=== PATIENT | male | born 1945 | race Caucasian/White ===

== ENCOUNTER 2018-05-05 16:07 | Inpatient (IN) | payer MEDICARE, OTHER ==
[~2018-05-05] VITALS: Ht 177.8 cm; Wt 73.5 kg
[2018-05-05 16:10] VITALS: BP 138/72
[2018-05-05] MEDS ORDERED: METFORMIN HCL500 M1 ORAL (16:33)
--- NOTE | 2018-05-05 16:44 | Emergency Room Report ---
History of Present Illness General Chief Complaint: Multiple Trauma/Fall Source: Patient Present Illness HPI Mr. Gil is a 72-year-old male with history of erk-ufwjtrp-tcqbyevky diabetes who presents with frequent fall. He fell twice today. Today fell onto face with bruising and bleeding to nose and right eye. Recently discharged from [place] yesterday morning after treatment for respiratory infection. Currently living in his van with his son. He decided to vacate his apartment. Has had balance issues in the past. No history of CVA. Allergies: Coded Allergies: No Known Allergies (Unverified , 05/05/18) Patient History Past Medical History: DM Past Surgical History: other - surgery on elbow Pertinent Family History: other - not significant Social History: Denies: smoking, alcohol use Reviewed Nursing Documentation: PMH: Agreed; PSxH: Agreed Nursing Documentation-PMH Past Medical History: No Stated History Review of Systems Constitutional: Denies: fever, malaise Respiratory: Denies: cough All Other Systems: negative except mentioned in HPI Physical Exam Vital Signs Date Time Temp Pulse Resp B/P (MAP) Pulse Ox O2 Delivery O2 Flow Rate FiO2 05/05/18 15:55 98.1 88 18 138/72 99 Room Air Sp02 EP Interpretation: reviewed, normal General Appearance: no apparent distress, alert, GCS 15, non-toxic Head: normocephalic, other - nose deformed to right, periorbital ecchymosis, dried blood on nose, 1 cm superficial laceration at bridge of nose Eyes: bilateral eye normal inspection, bilateral eye PERRL ENT: hearing grossly normal, normal pharynx, no angioedema, normal voice Neck: full range of motion, supple/symm/no masses Respiratory: chest non-tender, lungs clear, normal breath sounds, speaking full sentences Cardiovascular #1: regular rate, rhythm Cardiovascular #2: 2+ dorsalis pedis (R), 2+ dorsalis pedis (L) Gastrointestinal: normal bowel sounds, non tender, soft, non-distended, no guarding, no rebound Rectal: deferred Genitourinary: normal inspection, no CVA tenderness Musculoskeletal: normal range of motion Neurologic: alert, oriented x3, responsive, motor strength/tone normal, sensory intact, speech normal, abnormal gait Psychiatric: judgement/insight normal, memory normal, mood/affect normal, no suicidal/homicidal ideation Skin: normal color, no rash, warm/dry, well hydrated Lymphatic: no adenopathy Procedures Laceration/Wound Repair Laceration/Wound Repair : Consent: Verbal Wound Location: face Wound's Depth, Shape: superficial Wound Explored: clean Irrigated w/ Saline (ccs): 200 Betadine Prep?: No Wound Debrided: minimal Wound Repaired With: Dermabond Layer Closure?: No Sterile Dressing Applied?: No Patient Tolerated: Well Complications: None Progress 3 layers of dermabond applied to laceration Medical Decision Making Diagnostic Impression: Primary Impression: Gait instability Additional Impressions: Recurrent falls Nasal fracture Facial laceration Facial contusion ER Course Mr. Kuhn has had 2 falls since discharge from [place] on yesterday. Has difficulty with ambulation. Unclear if acute CVA or debilitation due to age. Will need neurological evaluation. Has facial contusion with old or subacute facial fractures. CT head without ICH Poor social situation. Patient is living in his van. He has not been able to reach his son via telephone Admitted to service of Dr. Olivas Labs Test 05/05/18 17:20 White Blood Count 13.6 K/UL (4.8-10.8) Red Blood Count 4.61 M/UL (4.70-6.10) Hemoglobin 14.4 G/DL (14.2-18.0) Hematocrit 41.1 % (42.0-52.0) Mean Corpuscular Volume 89 FL (80-99) Mean Corpuscular Hemoglobin 31.3 PG (27.0-31.0) Mean Corpuscular Hemoglobin Concent 35.0 G/DL (32.0-36.0) Red Cell Distribution Width 11.5 % (11.6-14.8) Platelet Count 202 K/UL (150-450) Mean Platelet Volume 6.2 FL (6.5-10.1) Neutrophils (%) (Auto) 79.9 % (45.0-75.0) Lymphocytes (%) (Auto) 8.5 % (20.0-45.0) Monocytes (%) (Auto) 10.2 % (1.0-10.0) Eosinophils (%) (Auto) 0.7 % (0.0-3.0) Basophils (%) (Auto) 0.6 % (0.0-2.0) Prothrombin Time 10.2 SEC (9.30-11.50) Prothromb Time International Ratio 1.0 (0.9-1.1) Activated Partial Thromboplast Time 28 SEC (23-33) Sodium Level 140 MMOL/L (136-145) Potassium Level 4.2 MMOL/L (3.5-5.1) Chloride Level 103 MMOL/L (98-107) Carbon Dioxide Level 27 MMOL/L (21-32) Anion Gap 10 mmol/L (5-15) Blood Urea Nitrogen 18 mg/dL (7-18) Creatinine 1.3 MG/DL (0.55-1.30) Estimat Glomerular Filtration Rate mL/min (>60) Glucose Level 121 MG/DL (74-106) Calcium Level 10.0 MG/DL (8.5-10.1) Total Bilirubin 0.5 MG/DL (0.2-1.0) Aspartate Amino Transf (AST/SGOT) 25 U/L (15-37) Alanine Aminotransferase (ALT/SGPT) 29 U/L (12-78) Alkaline Phosphatase 85 U/L (46-116) Troponin I 0.210 ng/mL (0.000-0.056) Total Protein 8.6 G/DL (6.4-8.2) Albumin 3.6 G/DL (3.4-5.0) Globulin 5.0 g/dL Albumin/Globulin Ratio 0.7 (1.0-2.7) EKG Diagnostic Results EKG Time: 16:49 Rate: normal Rhythm: NSR ST Segments: no acute changes Other Impression rate 95 bpm nl axis prolonged QT +LVH no ST elevation nonspecific T wave patter Last Vital Signs Date Time Temp Pulse Resp B/P (MAP) Pulse Ox O2 Delivery O2 Flow Rate FiO2 05/05/18 16:22 88 18 Room Air 05/05/18 16:10 98.1 138/72 99 Ayla Perkins MD May 05, 2018 16:44
[2018-05-05] MEDS ORDERED: Tetanus/Diptheria/Pertussis Vaccine 0.5ml Syr IM ONE (16:45)
[2018-05-05 17:53] LABS: BASOPHILS % (AUTO) 0.6 % (0.0-2.0); EOSINOPHILS % (AUTO) 0.7 % (0.0-3.0); HEMATOCRIT 41.1 % (42.0-52.0); HEMOGLOBIN 14.4 G/DL (14.2-18.0); LYMPHOCYTES % (AUTO) 8.5 % (20.0-45.0); MEAN CORPUSCULAR VOLUME 89 FL (80-99); MONOCYTES % (AUTO) 10.2 % (1.0-10.0); NEUTROPHILS % (AUTO) 79.9 % (45.0-75.0); PLATELET COUNT 202 K/UL (150-450); RED BLOOD COUNT 4.61 M/UL (4.70-6.10); RED CELL DISTRIBUTION WIDTH 11.5 % (11.6-14.8); WHITE BLOOD COUNT 13.6 K/UL (4.8-10.8)
[2018-05-05 17:59] LABS: ANION GAP 10 mmol/L (5-15); BLOOD UREA NITROGEN 18 mg/dL (7-18); CARBON DIOXIDE 27 MMOL/L (21-32); CHLORIDE 103 MMOL/L (98-107); CREATININE 1.3 MG/DL (0.55-1.30); POTASSIUM 4.2 MMOL/L (3.5-5.1); SODIUM 140 MMOL/L (136-145)
[2018-05-05 18:15] LABS: ALANINE AMINOTRANSFERASE 29 U/L (12-78); ALBUMIN 3.6 G/DL (3.4-5.0); ALBUMIN/GLOBULIN RATIO 0.7 (1.0-2.7); ALKALINE PHOSPHATASE 85 U/L (46-116); ASPARTATE AMINO TRANSFERASE 25 U/L (15-37); BILIRUBIN,TOTAL 0.5 MG/DL (0.2-1.0)
[2018-05-05 18:50] VITALS: BP 140/66
[2018-05-05] MEDS ORDERED: ASPIRIN81 MG ORAL (19:42)
[2018-05-05 20:05] VITALS: BP 148/68
[2018-05-05] MEDS: Heparin 5000 units/ml inj SUBQ SCH (23:28)
[2018-05-06] VITALS: BP 134/85
[2018-05-06 04:00] VITALS: BP 149/78
[2018-05-06] MEDS: NovoLOG Insulin Flexpen SUBQ SCH ×4 (05:58→20:49)
[2018-05-06 07:51] LABS: BASOPHILS % (AUTO) 0.7 % (0.0-2.0); EOSINOPHILS % (AUTO) 2.6 % (0.0-3.0); HEMATOCRIT 40.8 % (42.0-52.0); HEMOGLOBIN 13.9 G/DL (14.2-18.0); LYMPHOCYTES % (AUTO) 18.3 % (20.0-45.0); MEAN CORPUSCULAR VOLUME 88 FL (80-99); MONOCYTES % (AUTO) 12.4 % (1.0-10.0); PLATELET COUNT 219 K/UL (150-450); RED BLOOD COUNT 4.65 M/UL (4.70-6.10); RED CELL DISTRIBUTION WIDTH 11.7 % (11.6-14.8); WHITE BLOOD COUNT 8.4 K/UL (4.8-10.8)
[2018-05-06 08:00] VITALS: BP 129/73
[2018-05-06] MEDS: Aspirin Baby 81mg ORAL SCH (08:07)
[2018-05-06] MEDS: metFORMIN 500mg tab ORAL SCH ×2 (08:07→18:00)
[2018-05-06] MEDS: Heparin 5000 units/ml inj SUBQ SCH ×2 (08:08→20:50)
[2018-05-06 08:24] LABS: ALANINE AMINOTRANSFERASE 31 U/L (12-78); ALBUMIN 3.5 G/DL (3.4-5.0); ALBUMIN/GLOBULIN RATIO 0.8 (1.0-2.7); ALKALINE PHOSPHATASE 88 U/L (46-116); ANION GAP 8 mmol/L (5-15); ASPARTATE AMINO TRANSFERASE 25 U/L (15-37); BILIRUBIN,TOTAL 0.5 MG/DL (0.2-1.0); BLOOD UREA NITROGEN 19 mg/dL (7-18); CALCIUM 9.8 MG/DL (8.5-10.1); CARBON DIOXIDE 31 MMOL/L (21-32); CHLORIDE 103 MMOL/L (98-107); CREATININE 1.2 MG/DL (0.55-1.30); PHOSPHORUS 3.8 MG/DL (2.5-4.9); POTASSIUM 3.9 MMOL/L (3.5-5.1); SODIUM 142 MMOL/L (136-145)
[2018-05-06] MEDS ORDERED: UROXATRAL10 M2 PO (10:50)
[2018-05-06] MEDS ORDERED: CICLOPIROX6.6 ML TP (10:57)
[2018-05-06] MEDS ORDERED: ASPIRIN81 MG ORAL (10:57)
[2018-05-06] MEDS ORDERED: MELATONIN 3 MG1 EAC1 PO (10:57)
[2018-05-06] MEDS ORDERED: TERBINAFINE15 GM TP (10:57)
[2018-05-06] MEDS ORDERED: METFORMIN HYD1000 GM MC (10:57)
[2018-05-06] MEDS ORDERED: NS 275ml ONE (11:20)
[2018-05-06 12:00] VITALS: BP 116/68
--- NOTE | 2018-05-06 12:25 | Consultation ---
History of Present Illness General Date patient seen: May 06, 2018 Chief Complaint: Multiple Trauma/Fall Present Illness HPI 72-year-old male with history of uyy-mmpwplt-yurtwhedb diabetes who presents with frequent fall. Yesterday hefell onto face with bruising and bleeding to nose and right eye. He is admitted to telemetry for neuro evaluation. Allergies: Coded Allergies: No Known Allergies (Unverified , 05/05/18) Medication History Scheduled Aspirin* (Aspirin*), 81 MG ORAL DAILY, (Reported) Aspirin* (Aspirin*), 81 MG ORAL DAILY, (Reported) Metformin Hcl* (Metformin Hcl*), 1,000 MG ORAL TWICE A DAY, (Reported) Scheduled PRN Melatonin/Pyridoxine HCl (B6) (Melatonin 3 mg Tablet), 1 EACH PO for For High Blood Pressure, (Reported) Miscellaneous Medications Alfuzosin Hcl (Uroxatral), 10 MG PO, (Reported) Ciclopirox (Ciclopirox), 6.6 ML TP, (Reported) Metformin Hcl (Metformin Hydrochloride), 1,000 GM MC, (Reported) Terbinafine Hcl (Terbinafine), 15 GM TP, (Reported) Patient History Healthcare decision maker Resuscitation status Full Code Advanced Directive on File No Past Medical/Surgical History Past Medical/Surgical History: (1) Diabetes mellitus Review of Systems All Other Systems: negative except mentioned in HPI Physical Exam General Appearance: WD/WN Lines, tubes and drains: peripheral HEENT: normocephalic, atraumatic Neck: non-tender, normal alignment Respiratory/Chest: chest wall non-tender, lungs clear Cardiovascular/Chest: normal peripheral pulses, normal rate Abdomen: normal bowel sounds Genitourinary/Rectal: normal genital exam Extremities: normal range of motion Last 24 Hour Vital Signs Date Time Temp Pulse Resp B/P (MAP) Pulse Ox O2 Delivery O2 Flow Rate FiO2 05/06/18 08:38 Room Air 05/06/18 08:00 98.6 79 20 129/73 (91) 98 05/06/18 08:00 83 05/06/18 04:00 76 05/06/18 04:00 98.0 75 20 149/78 (101) 100 05/06/18 00:51 Room Air 05/06/18 00:00 82 05/06/18 00:00 98.1 98 21 134/85 (101) 100 05/05/18 21:30 98.4 94 20 148/68 99 Room Air 05/05/18 20:05 98.4 94 20 148/68 99 Room Air 05/05/18 18:50 98.1 90 18 140/66 99 Room Air 05/05/18 16:22 88 18 Room Air 05/05/18 16:10 98.1 18 138/72 99 Room Air 05/05/18 15:55 98.1 88 18 138/72 99 Room Air Laboratory Tests Test 05/05/18 17:20 05/06/18 06:40 White Blood Count 13.6 K/UL (4.8-10.8) H 8.4 K/UL (4.8-10.8) Red Blood Count 4.61 M/UL (4.70-6.10) L 4.65 M/UL (4.70-6.10) L Hemoglobin 14.4 G/DL (14.2-18.0) 13.9 G/DL (14.2-18.0) L Hematocrit 41.1 % (42.0-52.0) L 40.8 % (42.0-52.0) L Mean Corpuscular Volume 89 FL (80-99) 88 FL (80-99) Mean Corpuscular Hemoglobin 31.3 PG (27.0-31.0) H 30.0 PG (27.0-31.0) Mean Corpuscular Hemoglobin Concent 35.0 G/DL (32.0-36.0) 34.1 G/DL (32.0-36.0) Red Cell Distribution Width 11.5 % (11.6-14.8) L 11.7 % (11.6-14.8) Platelet Count 202 K/UL (150-450) 219 K/UL (150-450) Mean Platelet Volume 6.2 FL (6.5-10.1) L 6.1 FL (6.5-10.1) L Neutrophils (%) (Auto) 79.9 % (45.0-75.0) H 66.0 % (45.0-75.0) Lymphocytes (%) (Auto) 8.5 % (20.0-45.0) L 18.3 % (20.0-45.0) L Monocytes (%) (Auto) 10.2 % (1.0-10.0) H 12.4 % (1.0-10.0) H Eosinophils (%) (Auto) 0.7 % (0.0-3.0) 2.6 % (0.0-3.0) Basophils (%) (Auto) 0.6 % (0.0-2.0) 0.7 % (0.0-2.0) Prothrombin Time 10.2 SEC (9.30-11.50) Prothromb Time International Ratio 1.0 (0.9-1.1) Activated Partial Thromboplast Time 28 SEC (23-33) Sodium Level 140 MMOL/L (136-145) 142 MMOL/L (136-145) Potassium Level 4.2 MMOL/L (3.5-5.1) 3.9 MMOL/L (3.5-5.1) Chloride Level 103 MMOL/L (98-107) 103 MMOL/L (98-107) Carbon Dioxide Level 27 MMOL/L (21-32) 31 MMOL/L (21-32) Anion Gap 10 mmol/L (5-15) 8 mmol/L (5-15) Blood Urea Nitrogen 18 mg/dL (7-18) 19 mg/dL (7-18) H Creatinine 1.3 MG/DL (0.55-1.30) 1.2 MG/DL (0.55-1.30) Estimat Glomerular Filtration Rate mL/min (>60) mL/min (>60) Glucose Level 121 MG/DL (74-106) H 101 MG/DL (74-106) Calcium Level 10.0 MG/DL (8.5-10.1) 9.8 MG/DL (8.5-10.1) Total Bilirubin 0.5 MG/DL (0.2-1.0) 0.5 MG/DL (0.2-1.0) Aspartate Amino Transf (AST/SGOT) 25 U/L (15-37) 25 U/L (15-37) Alanine Aminotransferase (ALT/SGPT) 29 U/L (12-78) 31 U/L (12-78) Alkaline Phosphatase 85 U/L (46-116) 88 U/L (46-116) Troponin I 0.210 ng/mL (0.000-0.056) 0.160 ng/mL (0.000-0.056) Total Protein 8.6 G/DL (6.4-8.2) H 8.0 G/DL (6.4-8.2) Albumin 3.6 G/DL (3.4-5.0) 3.5 G/DL (3.4-5.0) Globulin 5.0 g/dL 4.5 g/dL Albumin/Globulin Ratio 0.7 (1.0-2.7) L 0.8 (1.0-2.7) L Hemoglobin A1c 5.9 % (4.3-6.0) Phosphorus Level 3.8 MG/DL (2.5-4.9) Magnesium Level 1.9 MG/DL (1.8-2.4) Height (Feet): 5 Height (Inches): 10.00 Weight (Pounds): 162 Medications Current Medications Medications (Trade) Dose Ordered Sig/Phill Route PRN Reason Start Time Stop Time Status Last Admin Dose Admin Acetaminophen (Tylenol) 650 mg Q6H PRN ORAL Mild Pain/Temp > 100.5 05/05/18 22:30 06/04/18 22:29 Aspirin (ASA) 81 mg DAILY ORAL 05/06/18 09:00 06/05/18 08:59 05/06/18 08:07 Dextrose (Dextrose 50%) 25 ml Q30M PRN IV Hypoglycemia 05/05/18 22:30 06/04/18 22:29 Dextrose (Dextrose 50%) 50 ml Q30M PRN IV Hypoglycemia 05/05/18 22:30 06/04/18 22:29 Heparin Sodium (Porcine) (Heparin 5000 units/ml) 5,000 units EVERY 12 HOURS SUBQ 05/05/18 22:45 06/04/18 22:44 05/06/18 08:08 Insulin Aspart (NovoLOG) BEFORE MEALS AND HS SUBQ 05/06/18 06:30 06/05/18 06:29 Metformin HCl (Glucophage) 1,000 mg TWICE A DAY ORAL 05/06/18 09:00 06/05/18 08:59 05/06/18 08:07 Assessment/Plan Problem List: (1) positivie troponin (2) Acute encephalopathy ICD Codes: G93.40 - Encephalopathy, unspecified SNOMED: 58729461, 194043368 (3) Gait instability ICD Codes: R26.81 - Unsteadiness on feet SNOMED: 43794587, 770681534 (4) Recurrent falls ICD Codes: R29.6 - Repeated falls SNOMED: 653676822, 185776170 (5) Diabetes mellitus ICD Codes: E11.9 - Type 2 diabetes mellitus without complications SNOMED: 64934186 Assessment/Plan telemetry monitoring 2Decho sliding scale doppler of carotid artery. Neuro evaluation when available. cardio evaluation. Mary Costello MD May 06, 2018 12:25
--- NOTE | 2018-05-06 12:59 | Cardiac Electrophysiology PN ---
Subjective Subjective [id number] Objective Last 24 Hour Vital Signs Date Time Temp Pulse Resp B/P (MAP) Pulse Ox O2 Delivery O2 Flow Rate FiO2 05/06/18 12:00 98.4 70 20 116/68 (84) 99 05/06/18 08:38 Room Air 05/06/18 08:00 98.6 79 20 129/73 (91) 98 05/06/18 08:00 83 05/06/18 04:00 76 05/06/18 04:00 98.0 75 20 149/78 (101) 100 05/06/18 00:51 Room Air 05/06/18 00:00 82 05/06/18 00:00 98.1 98 21 134/85 (101) 100 05/05/18 21:30 98.4 94 20 148/68 99 Room Air 05/05/18 20:05 98.4 94 20 148/68 99 Room Air 05/05/18 18:50 98.1 90 18 140/66 99 Room Air 05/05/18 16:22 88 18 Room Air 05/05/18 16:10 98.1 18 138/72 99 Room Air 05/05/18 15:55 98.1 88 18 138/72 99 Room Air Laboratory Tests Test 05/05/18 17:20 05/06/18 06:40 White Blood Count 13.6 K/UL (4.8-10.8) H 8.4 K/UL (4.8-10.8) Red Blood Count 4.61 M/UL (4.70-6.10) L 4.65 M/UL (4.70-6.10) L Hemoglobin 14.4 G/DL (14.2-18.0) 13.9 G/DL (14.2-18.0) L Hematocrit 41.1 % (42.0-52.0) L 40.8 % (42.0-52.0) L Mean Corpuscular Volume 89 FL (80-99) 88 FL (80-99) Mean Corpuscular Hemoglobin 31.3 PG (27.0-31.0) H 30.0 PG (27.0-31.0) Mean Corpuscular Hemoglobin Concent 35.0 G/DL (32.0-36.0) 34.1 G/DL (32.0-36.0) Red Cell Distribution Width 11.5 % (11.6-14.8) L 11.7 % (11.6-14.8) Platelet Count 202 K/UL (150-450) 219 K/UL (150-450) Mean Platelet Volume 6.2 FL (6.5-10.1) L 6.1 FL (6.5-10.1) L Neutrophils (%) (Auto) 79.9 % (45.0-75.0) H 66.0 % (45.0-75.0) Lymphocytes (%) (Auto) 8.5 % (20.0-45.0) L 18.3 % (20.0-45.0) L Monocytes (%) (Auto) 10.2 % (1.0-10.0) H 12.4 % (1.0-10.0) H Eosinophils (%) (Auto) 0.7 % (0.0-3.0) 2.6 % (0.0-3.0) Basophils (%) (Auto) 0.6 % (0.0-2.0) 0.7 % (0.0-2.0) Prothrombin Time 10.2 SEC (9.30-11.50) Prothromb Time International Ratio 1.0 (0.9-1.1) Activated Partial Thromboplast Time 28 SEC (23-33) Sodium Level 140 MMOL/L (136-145) 142 MMOL/L (136-145) Potassium Level 4.2 MMOL/L (3.5-5.1) 3.9 MMOL/L (3.5-5.1) Chloride Level 103 MMOL/L (98-107) 103 MMOL/L (98-107) Carbon Dioxide Level 27 MMOL/L (21-32) 31 MMOL/L (21-32) Anion Gap 10 mmol/L (5-15) 8 mmol/L (5-15) Blood Urea Nitrogen 18 mg/dL (7-18) 19 mg/dL (7-18) H Creatinine 1.3 MG/DL (0.55-1.30) 1.2 MG/DL (0.55-1.30) Estimat Glomerular Filtration Rate mL/min (>60) mL/min (>60) Glucose Level 121 MG/DL (74-106) H 101 MG/DL (74-106) Calcium Level 10.0 MG/DL (8.5-10.1) 9.8 MG/DL (8.5-10.1) Total Bilirubin 0.5 MG/DL (0.2-1.0) 0.5 MG/DL (0.2-1.0) Aspartate Amino Transf (AST/SGOT) 25 U/L (15-37) 25 U/L (15-37) Alanine Aminotransferase (ALT/SGPT) 29 U/L (12-78) 31 U/L (12-78) Alkaline Phosphatase 85 U/L (46-116) 88 U/L (46-116) Troponin I 0.210 ng/mL (0.000-0.056) 0.160 ng/mL (0.000-0.056) Total Protein 8.6 G/DL (6.4-8.2) H 8.0 G/DL (6.4-8.2) Albumin 3.6 G/DL (3.4-5.0) 3.5 G/DL (3.4-5.0) Globulin 5.0 g/dL 4.5 g/dL Albumin/Globulin Ratio 0.7 (1.0-2.7) L 0.8 (1.0-2.7) L Hemoglobin A1c 5.9 % (4.3-6.0) Phosphorus Level 3.8 MG/DL (2.5-4.9) Magnesium Level 1.9 MG/DL (1.8-2.4) Lauri Faye MD May 06, 2018 12:59
--- NOTE | 2018-05-06 13:07 | Diagnostic Imaging Report ---
Indication: Trauma. Facial pain Technique: Continuous helical transaxial imaging of the maxillofacial structures obtained without intravenous contrast administration. Coronal 2-D reformats were also obtained. Study obtained in a Siemens sensation [address] Automatic Exposure Control was utilized. Total Dose length Product (DLP): 1988.[address] Dose Index Volume (CTDIvol): 70.38,28.19 mGy Comparison: None Findings: There is an acute nasal fracture involving the apex of the nasal bone and the right side. Soft tissue swelling is present. There is right periorbital soft tissue swelling. There is a mild nondisplaced fracture of the right orbital floor, which is subtle and may be old. There is subtle mild nondisplaced fracture of the anterior wall of the right maxillary sinus. An age indeterminate fracture extending to the posterior wall of the maxillary sinus. These fractures may be old. The pterygoid plates are intact. The nasal septum is deviated to the left. The temporomandibular joints appear normal. The mastoids are clear bilaterally. The mandible is on remarkable. Degenerative changes of the cervical spine are noted. The orbits themselves appear normal. The extraocular muscles optic nerve and globe appear normal. There is no retrobulbar hemorrhage or proptosis. IMPRESSION: Acute nondisplaced right nasal fracture. Subtle nondisplaced fracture of the right inferior orbital wall, acuity indeterminate. Right periorbital soft tissue contusion. Subtle nondisplaced fractures of the anterior wall of the right maxillary sinus as well as the posterior wall the right maxillary sinus. These are probably old. [facility] has communicated the preliminary results to the Emergency Department. Their findings are largely concordant with this report. The CT scanner at [facility] is accredited by the [employer] and the scans are performed using dose optimization techniques as appropriate to a performed exam including Automatic Exposure control.
--- NOTE | 2018-05-06 13:08 | Diagnostic Imaging Report ---
Indication: Head trauma. Headache Technique: Contiguous 5 mm thick transaxial imaging of the head obtained in a Siemens Sensation [address] scanner. Soft tissue and bone windows generated. Automatic Exposure Control was utilized. Total Dose length Product (DLP): 1988.[address] Dose Index Volume (CTDIvol): 70.38,28.19 mGy Comparison: none Findings: There is mild prominence of the ventricles, basal cisterns, and cerebral sulci consistent with atrophy. Mild, nonspecific, white matter hypoattenuation is noted throughout the brain consistent with chronic small vessel disease. There is no midline shift, edema, acute hemorrhage, mass effect, or abnormal extra-axial fluid collections. Right periorbital soft tissue swelling noted. Impression: No acute intracranial bleed, mass effect or edema. Mild atrophy of the brain. Nonspecific white matter hypoattenuation probably due to chronic small vessel disease. Right periorbital soft tissue contusion The CT scanner at [facility] is accredited by the [employer] and the scans are performed using dose optimization techniques as appropriate to a performed exam including Automatic Exposure control.
--- NOTE | 2018-05-06 13:52 | Diagnostic Imaging Report ---
Indication: Dyspnea Comparison: None A single view chest radiograph was obtained. Findings: Cardiomediastinal appearance is within normal limits for age. The lungs are clear. Pulmonary vascularity is appropriate. The diaphragmatic contour is smooth and costophrenic angles are sharp. No pleural effusions are identified. The bones are osteopenic. Impression: No acute findings
[2018-05-06] MEDS: CICLOPIROX 8% TOPIC SCH (14:37)
--- NOTE | 2018-05-06 15:04 | Consultation ---
Consult Note Consult Note NEUROLOGY CONSULTATION: Full note dictated #[id number] 72 y/o, RH, CM with PH of DM, unsteadiness on his feet which he attributes to left knee problems, and a recent respiratory infection. He was functioning relatively well until 05/05/18 when he tripped and fell down on the sidewalk twice. He hit his right face and nose and injured it. ON EXAM: Right periorbital ecchymosis. Right subconjunctival hemorrhage. Mild problems with memory. Decreased position sense in toes Globally absent DTRs [place] back Wide based stance & gait. IMPRESSION: 1. 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 2. Closed head injury with right facial aberrations, right periorbital ecchymosis, and right sub-conjunctival hemorrhage. REC: 1. Work-up neuropathy. 2. Mobilize with PT 3. Observe Maury Sanchez M.D., M.S.P.MAURY ARELLANO May 06, 2018 15:04
--- NOTE | 2018-05-06 15:16 | History & Physical ---
History and Physical History & Physicial Rik Olivas MD May 06, 2018 15:16
[2018-05-06 16:00] VITALS: BP 109/67
[2018-05-06 20:00] VITALS: BP 128/81
[2018-05-06] MEDS: Metoprolol 25mg tab ORAL SCH (20:48)
--- NOTE | 2018-05-06 21:02 | Consultation ---
DATE OF CONSULTATION: 05/06/2018 CARDIOLOGY CONSULTATION CONSULTING PHYSICIAN: Lauri Faye M.D. REFERRING PHYSICIAN: Rik Olivas M.D. REASON FOR CONSULTATION: Rule out cardiac syncope. HISTORY OF PRESENT ILLNESS: The patient is a 72-year-old gentleman with history of diabetes, who presented to the emergency room with recurrent falls. The patient fell onto his face which resulted in bruising and bleeding in the nose as well as right eye. The patient denies loss of consciousness. States it was a trip and fall. The patient denies any prior myocardial infarction or known coronary artery disease. Cardiology consultation was obtained for further evaluation and management. His EKG showed left ventricle hypertrophy with repolarization abnormality as well as prolonged QT. REVIEW OF SYSTEMS: Negative other than what was mentioned in the history of present illness. PAST MEDICAL HISTORY: Includes diabetes. FAMILY HISTORY: Noncontributory. MEDICATIONS: Include aspirin and metformin. FAMILY HISTORY: Noncontributory. SOCIAL HISTORY: He does not smoke or drink alcohol. PHYSICAL EXAMINATION: VITAL SIGNS: Show blood pressure of 116/68, pulse 70, respirations 18, temperature 98.4. HEAD AND NECK: Shows no JVD. His right eye is ecchymotic. There is a scar on the bridge of the nose. LUNGS: Clear. CARDIOVASCULAR: Shows regular S1 and S2 with no gallop or murmur. ABDOMEN: Soft. EXTREMITIES: No pitting edema. LABORATORY AND DIAGNOSTIC STUDIES: His EKG shows sinus rhythm with LVH, repolarization, and prolonged QT. Laboratories show white count of 8.4, hematocrit 13.8, hematocrit of 40, and platelet count 219,000. Sodium 142, potassium 3.9, BUN of 19, creatinine 1.2. Troponin is 0.21 and 0.16. ASSESSMENT AND PLAN: 1. Xuc-BJ-lgvjwphvq myocardial infarction with elevated troponins and abnormal EKG with T-wave inversion in I, aVL, and V3 to V6. The patient however denies any chest pain. Repeat EKG and get an echocardiogram to evaluate for ejection fraction and wall motion abnormality. However, the patient does not have renal failure to have elevated troponins. 2. Status post multiple falls. The patient denies syncope. We will watch the patient on telemetry, watch orthostatic vital signs, and get echocardiogram and carotid duplex. 3. Diabetes, on metformin. Thank you very much, Dr. Olivas, for allowing me to participate in the care of this patient. Please do not hesitate to contact me for any questions regarding my evaluation. Lauri Faye M.D. DR: Benito JOB#: [id number] CC:
--- NOTE | 2018-05-06 21:02 | Consultation ---
DATE OF CONSULTATION: 05/06/2018 NEUROLOGY CONSULTATION REQUESTING PHYSICIAN: Rik Olivas M.D. HISTORY: Mr. Segundo Kuhn is a 72-year-old, right-handed, gentleman, who does have a past history of what he calls borderline diabetes mellitus, unsteadiness on his feet which he attributes to left knee problems and a recent respiratory infection. He was functioning well until the morning of 05/05/2018 when he tripped and fell down on the sidewalk. He got up and started to walk again and fell down again. As a result of that, he sustained right facial trauma and was brought into the [facility] Emergency Room. He has since been admitted to the hospital. He denies any loss of consciousness. He also denies any weakness on one side or the other, numbness on one side or the other, problems with speech, problems with language, problems with vision, or problems with his memory. PAST MEDICAL HISTORY: Significant for borderline diabetes mellitus, unsteadiness on his feet, and a recent respiratory infection. FAMILY HISTORY: Nothing significant. PERSONAL HISTORY: Home: He lives with his son. 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 Habits: He used to smoke in the past, but stopped smoking numerous years ago. He smoked for a total of about 27 years. He has a single alcoholic drink in a week. He denies the use of any illicit drugs. MEDICATIONS: Present medications include Lamisil, Remeron, Lopressor, aspirin, metformin, insulin, heparin for DVT prophylaxis, and Tylenol p.r.n. PHYSICAL EXAMINATION: GENERAL: He is a well-developed and well-nourished pleasant gentleman, lying in bed, in no acute distress. VITAL SIGNS: Pulse 70/minute, blood pressure 116/68 mmHg, respirations 20/minute, temperature 98.4 degrees Fahrenheit. HEAD: Normocephalic with right periorbital ecchymosis, right facial and nasal abrasions, and right subconjunctival hemorrhage. NECK: No neck rigidity was observed. ENT: Benign except for right subconjunctival hemorrhage. NEUROLOGICAL EXAMINATION: MENTAL STATUS EXAMINATION: He was awake and alert. He was oriented to person, place, and time. He was able to recall 3/3 words immediately after 1 minute and after 3 minutes on the second trial. He was able to remember presidents Trump through Nunez Senior. His mathematical skills were good. His visuospatial function was preserved. SPEECH: He had no dysarthria. LANGUAGE: He had no aphasia. CRANIAL NERVE EXAMINATION: II: The visual hurtado were intact on confrontation testing. III, IV & : External ocular movements were full. Pupils were 3 mm in diameter equal, round, regular, and reactive to light. V: He had normal facial sensations, and the temporales, masseters, and pterygoids functioned normally. VII: He had normal facial expressions and no facial asymmetry. VIII: He was able to hear well bilaterally and had no nystagmus. IX: The palate moved symmetrically on phonation. X: He had no hoarseness of voice. XI: The sternocleidomastoids and trapezii functioned normally. XII: The tongue was in the midline without any fasciculations or atrophy. MOTOR SYSTEM: The tone was normal in all four extremities. Examination of muscle mass revealed no focal wasting. Examination of power revealed G 5/5 power in all muscles. SENSORY EXAMINATION: He had intact sensations to pinprick, light touch, and graphesthesia. Position sense was diminished in the toes bilaterally, but was normal in the fingers bilaterally. COORDINATION: He performed well on titjsd-wp-xyeq and dwxt-nv-btan testing. On Romberg test, he fell backwards. REFLEXES: 0 at the biceps, triceps, brachioradialis, knees, and ankles. The plantar responses were flexor bilaterally. STANCE: He had a wide-based stance. GAIT: He had a wide-based gait. DIAGNOSTIC IMPRESSION: 1. Mr. Segundo Kuhn is a 72-year-old, right-handed, gentleman, who does have a past history of diabetes mellitus, unsteadiness on his feet which he attributes to left knee problems, and a recent respiratory infection who was functioning well until 05/05/2018, when he tripped and fell down twice on the sidewalk. He in that process sustained right facial and nose injuries. There was no loss of consciousness. 2. On neurological examination, at this time, he does demonstrate a right periorbital ecchymosis, right subconjunctival hemorrhage, abrasions over his right face and nose, mild problems with recent memory, decreased position sense in the toes bilaterally, globally absent deep tendon reflexes, a tendency to fall backwards on Romberg test, and a wide-based stance and gait. 3. The CT scan of the brain without contrast reveals mild atrophy and deep white matter changes, but no acute pathology. 4. Laboratory data obtained thus far reveal that on admission his WBC count was elevated to 13,600, and is now down to 8400. He is also mildly anemic with a hemoglobin of 13.9 G. His chemistry panel is essentially benign. He did have a troponin elevated to 0.21 when he came in, which has now dropped to 0.16. 5. 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 The most likely etiology for his neuropathy would be a diabetic neuropathy. 6. The patient has also sustained close head trauma with right facial abrasions, right periorbital ecchymosis, and right subconjunctival hemorrhage, but no other signs of the brain dysfunction. RECOMMENDATIONS: 1. Agree with management thus far. 2. The patient should be worked up thoroughly for other treatable causes of neuropathy. 3. He was told to make sure that his diabetes is well controlled. 4. He should be mobilized with the help of physical therapy. 5. He will be observed closely and depending on how he fares further recommendations will be made. Thank you for entrusting me with the care of Mr. Kuhn. I shall follow him with you. Shine Sanchez M.D., M.S.P.H. DR: ESCOBAR JOB#: [id number] PAULA
--- NOTE | 2018-05-06 21:16 | Consultation ---
DATE OF CONSULTATION: 05/06/2018 HISTORY OF PRESENT ILLNESS: The patient is a 72-year-old male with a history of multiple medical problems including diabetes, imbalance, recurrent fall, anxiety disorder, and insomnia, who has been admitted to the hospital status post fall and injured his right eye. The patient apparently had a syncope and fell. However, he stated that he tripped and fell. His troponin is abnormal and he feels anxious. He stated that he is having difficulty sleeping at night due to excessive anxiety. He takes melatonin at home and we informed him that we do not have melatonin in formulary here. Therefore, the patient was ordered mirtazapine, he agreed and gave consent to be started on mirtazapine. PAST PSYCHIATRIC HISTORY: Anxiety disorder. Does not have a psychiatrist. Never been in psychiatric hospital. PAST MEDICAL HISTORY: As above. ALLERGIES: No known drug allergies. SUBSTANCE ABUSE HISTORY: No known history of illicit drug use or alcohol. MENTAL STATUS EXAMINATION: The patient is alert and oriented times self, place, and situation. CT of the head was nonsignificant, only shown mild atrophy of the brain. ASSESSMENT: AXIS I Anxiety disorder and insomnia. AXIS II Deferred. AXIS III Eye trauma, status post fall. AXIS IV Moderate. AXIS V Global assessment of functioning is 50. PLAN: 1. The patient will be started on Remeron 7.5 mg at bedtime. 2. We will continue to follow and readjust the medications. Magalys Witt M.D. DR: KATHLEEN JOB#: [id number] CC:
--- NOTE | 2018-05-06 21:16 | History and Physical Report ---
DATE OF ADMISSION: 05/05/2018 CHIEF COMPLAINT: Multiple falls with facial injury. HISTORY OF PRESENT ILLNESS: This 72-year-old gentleman with past medical history significant for diabetes type 2, who presented to the hospital complaining about recurrent falls. He did sustain right-sided facial injury. The patient stated that he fell twice yesterday to the right side of face, became injured. He stated it was a mechanical fall. Denies any loss of consciousness or denies any bowel or urine incontinence. The patient stated that he did not have any palpitation or chest pain or shortness of breath prior to these episodes. He stated that he purely trip and fell yesterday. He has bruises and bleeding from his nose and right eye. Shortly after initial evaluation in the emergency, he was admitted to the hospital with recurrent fall with acute facial injury with unsteady gait. PAST MEDICAL HISTORY AND PAST SURGICAL HISTORY: As above. History of diabetes type 2. MEDICATIONS: At home, please refer to medication reconciliation. ALLERGIES: No known drug allergies. SOCIAL HISTORY: The patient is an ex-smoker, quit in 1987. Denies any substance abuse. He drinks occasionally. Denies any suicidal or homicidal sedation. FAMILY HISTORY: Noncontributory. REVIEW OF SYSTEMS: Mostly as above. Denies any dysuria, frequency, or hematuria. Denies any hemoptysis or hematochezia. Denies any double vision. Denies any loss of consciousness. Denies any bowel or urine incontinence. PHYSICAL EXAMINATION: VITAL SIGNS: On admission from the ER, temperature is 98.1, pulse of 88, respirations 18, and blood pressure 138/72. GENERAL: The patient awake, responsive, not in acute distress. HEAD AND NECK: Pupils are equal and reactive to light. Extraocular movements are intact. Right eye has a periorbital ecchymosis with the hematoma on the sclera area. A 1 cm superficial laceration at the bridge of the nose with edema around the nose area. Tender to touch. Neck was supple. No JVD. LUNGS: Good air entry. No wheezing or rales. HEART: S1, S2. Regular rhythm. No gallops. ABDOMEN: Soft, nondistended, and nontender. Positive bowel sounds. EXTREMITIES: No cyanosis, clubbing, or edema. NEUROLOGIC: Cranial nerves II through XII are grossly intact. Moves all four extremities. Gait is unsteady. RECTAL: Refused and deferred. GENITOURINARY: Refused and deferred. PSYCHIATRIC: Mood and affect is intact. LABORATORY AND DIAGNOSTIC DATA: On admission from the ER, WBC of 13, hemoglobin 14, hematocrit 41, and platelets 202. Sodium 140, potassium 4.2, chloride 103, bicarb 27, BUN 18, creatinine 1.3, and glucose is 121. Hemoglobin A1c is 5.9. Troponin is 0.210 and repeat one is 0.160. PT of 10, INR 1.0, and PTT of 28. The patient had a CT of the head and showed that the patient has no acute intracranial bleeding or mass effect or edema. Mild atrophy of the brain, nonspecific white matter hypoattenuation, probably due to the chronic small vessel right periorbital soft tissue contusion. CT of the facial bone showed acute nondisplaced right nasal fracture, subtle nondisplaced fracture of the right inferior orbital wall, acuity undetermined, right periorbital soft tissue contusion, subtle nondisplaced fracture of the anterior wall of the right maxillary sinus as well as the posterior wall and the right maxillary sinus. This is probably old. The patient had a chest x-ray. No acute findings. ASSESSMENT: 1. History of fall with facial injury including acute nondisplaced right nasal fracture as well as a nondisplaced fracture of the right inferior orbital wall and right periorbital soft tissue contusion and right maxillary sinus and posterior wall of the right maxillary sinus nondisplaced fracture. 2. Diabetes type 2, possible diabetic polyneuropathy. 3. Unsteady gait. 4. Dehydration. PLAN: Admit the patient to monitored unit. We will follow up laboratory. Discussed case with Dr. Shine Sanchez from Neurology as well as Dr. Pineda from Ophthalmology. We will monitor laboratory closely. PT evaluation. Code status, Full Code. DVT prophylaxis, heparin subcutaneous. Rik Olivas M.D. DR: KETTY JOB#: [id number] CC:
[2018-05-06] MEDS ORDERED: Isovue-370 150ml vial INJ PRN ×2 (22:30)
[2018-05-07] VITALS: BP 132/79
[2018-05-07 04:00] VITALS: BP 121/68
[2018-05-07] MEDS: NovoLOG Insulin Flexpen SUBQ SCH ×4 (06:30→21:13)
[2018-05-07 08:00] VITALS: BP 129/53
[2018-05-07 09:18] LABS: CHOLESTEROL 174 MG/DL (< 200); HDL CHOLESTEROL 44 MG/DL (40-60); TRIGLYCERIDES 119 MG/DL (30-150)
[2018-05-07] MEDS: TERBINAFINE 1% TOPIC SCH (09:30)
[2018-05-07] MEDS: Metoprolol 25mg tab ORAL SCH ×2 (09:30→20:23)
[2018-05-07] MEDS: CICLOPIROX 8% TOPIC SCH (09:30)
[2018-05-07] MEDS: Aspirin Baby 81mg ORAL SCH (09:30)
[2018-05-07] MEDS: Heparin 5000 units/ml inj SUBQ SCH ×2 (09:32→20:24)
[2018-05-07 12:00] VITALS: BP 114/70
--- NOTE | 2018-05-07 13:02 | Cardiac Electrophysiology PN ---
Assessment/Plan Assessment/Plan 1. Dkz-TM-xpxhlwusc myocardial infarction with elevated troponins and abnormal EKG with T-wave inversion in I, aVL, and V3 to V6. The patient however denies any chest pain. Echo Nl EF. However, the patient does not have renal failure to have elevated troponins. Will schedule for nuclear stress test on Wednesday 2. Status post multiple falls. The patient denies syncope. ECho Nl EF no . Carotid dupplex pending 3. Diabetes, on metformin. ELIZABETH RN Subjective Subjective Alert in NAD. No CP or SOB Objective Last 24 Hour Vital Signs Date Time Temp Pulse Resp B/P (MAP) Pulse Ox O2 Delivery O2 Flow Rate FiO2 05/07/18 09:30 67 129/53 05/07/18 08:00 97.9 67 20 129/53 (78) 92 05/07/18 04:00 59 05/07/18 04:00 97.4 59 20 121/68 (85) 97 05/07/18 00:00 62 05/07/18 00:00 98.0 62 20 132/79 (96) 96 05/06/18 21:00 Room Air 05/06/18 20:48 70 128/81 05/06/18 20:00 97.4 75 20 128/81 (97) 97 05/06/18 20:00 75 05/06/18 16:00 98.1 77 20 109/67 (81) 95 05/06/18 16:00 71 Intake and Output 05/06/18 05/07/18 19:00 07:00 Intake Total 740 ml Balance 740 ml Intake Oral 740 ml # Voids 3 1 Laboratory Tests Test 05/07/18 07:25 Troponin I 0.071 ng/mL (0.000-0.056) Pro-B-Type Natriuretic Peptide 367 pg/mL (0-125) H Triglycerides Level 119 MG/DL (30-150) Cholesterol Level 174 MG/DL (< 200) LDL Cholesterol 115 mg/dL (<100) H HDL Cholesterol 44 MG/DL (40-60) Cholesterol/HDL Ratio 4.0 (3.3-4.4) Microbiology Date/Time Source Procedure Growth Status 05/05/18 21:15 Nasal Nares MRSA Culture - Final NO METHICILLIN RESISTANT STAPH AUREUS... Complete 05/05/18 21:15 Rectum VRE Culture - Final NO VANCOMYCIN RESISTANT ENTEROCOCCUS ... Complete Objective HEAD AND NECK: Shows no JVD. His right eye is ecchymotic. There is a scar on the bridge of the nose. LUNGS: Clear. CARDIOVASCULAR: Shows regular S1 and S2 with no gallop or murmur. ABDOMEN: Soft. EXTREMITIES: No pitting edema. Lauri Faye MD May 07, 2018 13:02
--- NOTE | 2018-05-07 14:22 | Neurology Progress Note ---
Interim History Interim History Interim History Mr. Marino feels better. The mind is clear. He denies any headache. He has walked to the bathroom a few times and has been steady on his feet. He continues to feel a little unsteady when he stands up. He denies any further falls. He denies any new neurologic symptoms. Review of Systems Neuro Review of Systems Benign. Objective Physical Exam Last Vital Signs Date Time Temp Pulse Resp B/P (MAP) Pulse Ox O2 Delivery O2 Flow Rate FiO2 05/07/18 12:00 60 05/07/18 12:00 97.3 20 114/70 (85) 98 05/07/18 09:00 Room Air Laboratory Tests Test 05/07/18 07:25 Troponin I 0.071 ng/mL (0.000-0.056) Pro-B-Type Natriuretic Peptide 367 pg/mL (0-125) H Triglycerides Level 119 MG/DL (30-150) Cholesterol Level 174 MG/DL (< 200) LDL Cholesterol 115 mg/dL (<100) H HDL Cholesterol 44 MG/DL (40-60) Cholesterol/HDL Ratio 4.0 (3.3-4.4) Neurologic Exam Objective PHYSICAL EXAMINATION: GENERAL: He is a well-developed and well-nourished pleasant gentleman , lying in bed, in no acute distress. HEAD: Normocephalic with right periorbital ecchymosis, right facial and nasal abrasions, and right subconjunctival hemorrhage. NECK: No neck rigidity was observed. EENT: Benign except for right subconjunctival hemorrhage. NEUROLOGICAL EXAMINATION: MENTAL STATUS EXAMINATION: He was awake and alert. He was oriented to person, place, and time. He was able to recall 3/3 words immediately after 1 minute and after 3 minutes on the second trial. He was able to remember presidents Trump through Nunez Senior. His mathematical skills were good. His visuospatial function was preserved. SPEECH: He had no dysarthria. LANGUAGE: He had no aphasia. CRANIAL NERVE EXAMINATION: II: The visual hurtado were intact on confrontation testing. III, IV & : External ocular movements were full. Pupils were 3 mm in diameter equal, round, regular, and reactive to light. V: He had normal facial sensations, and the temporales, masseters, and pterygoids functioned normally. VII: He had normal facial expressions and no facial asymmetry. VIII: He was able to hear well bilaterally and had no nystagmus. IX: The palate moved symmetrically on phonation. X: He had no hoarseness of voice. XI: The sternocleidomastoids and trapezii functioned normally. XII: The tongue was in the midline without any fasciculations or atrophy. MOTOR SYSTEM: The tone was normal in all four extremities. Examination of muscle mass revealed no focal wasting. Examination of power revealed G 5/5 power in all muscles. SENSORY EXAMINATION: He had intact sensations to pinprick, light touch, and graphesthesia. Position sense was diminished in the toes bilaterally, but was normal in the fingers bilaterally. COORDINATION: He performed well on karwlx-yn-mwub and hlcn-gn-xigs testing. On Romberg test, he fell backwards. REFLEXES: 0 at the biceps, triceps, brachioradialis, knees, and ankles. The plantar responses were flexor bilaterally. STANCE: He had a wide-based stance. GAIT: He had a wide-based gait. Impression/Recommendations Diagnostic Impression 1. Mr. Segundo Kuhn is a 72-year-old, right-handed, gentleman, who does have a past history of diabetes mellitus, unsteadiness on his feet which he attributes to left knee problems, and a recent respiratory infection who was functioning well until 05/05/2018, when he tripped and fell down twice on the sidewalk. He in that process sustained right facial and nose injuries. There was no loss of consciousness. 2. He feels better. The mind is clear. He denies any headache. He has walked to the bathroom a few times and has been steady on his feet. He continues to feel a little unsteady when he stands up. He denies any further falls. He denies any new neurologic symptoms. 3. On neurological examination, at this time, he does demonstrate a right periorbital ecchymosis, right subconjunctival hemorrhage, abrasions over his right face and nose, mild problems with recent memory, decreased position sense in the toes bilaterally, globally absent deep tendon reflexes, a tendency to fall backwards on Romberg test, and a wide-based stance and gait. 4. The CT scan of the brain without contrast reveals mild atrophy and deep white matter changes, but no acute pathology. 5. Laboratory data on my initial evaluation revealed that on admission his WBC count was elevated to 13,600, and was then down to 8400. He was also mildly anemic with a hemoglobin of 13.9 G. His chemistry panel was essentially benign. He did have a troponin elevated to 0.21 when he came in, which had dropped to 0.16. 6. Further laboratory tests have revealed that he is Vitamin B 12 deficient with a level of 308. 7. 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 The most likely etiology for his neuropathy would be a diabetic neuropathy and B 12 deficiency. 8. The patient has also sustained close head trauma with right facial abrasions , right periorbital ecchymosis, and right subconjunctival hemorrhage, but no other signs of the brain dysfunction. Recommendations 1. Continue present management. 2. Vitamin B 12 - 1000 mcg SC daily x 3 days and then monthly. 3. He was told to make sure that his diabetes is well controlled. 4. Mobilize with the help of physical therapy. 5. Increase activity as tolerated. Maury Brown M.D., M.S.P.H. MAURY BROWN May 07, 2018 14:22
--- NOTE | 2018-05-07 15:16 | Cardiology Report ---
APPROVED REPORT EKG Measurement Heart [id number] Normal sinus rhythm Left ventricular hypertrophy with repolarization abnormality Prolonged QT Abnormal ECG
[2018-05-07 16:00] VITALS: BP 113/64
[2018-05-07] MEDS: Vitamin B12 1000mcg/ml Inj SUBQ SCH (17:32)
--- NOTE | 2018-05-07 18:17 | Internal Med Progress Note ---
Subjective Date of Service: May 07, 2018 Physician Name Montez Gifford Attending Physician Rik Olivas MD Current Medications Medications (Trade) Dose Ordered Sig/Phill Route PRN Reason Start Time Stop Time Status Last Admin Dose Admin Acetaminophen (Tylenol) 650 mg Q6H PRN ORAL Mild Pain/Temp > 100.5 05/05/18 22:30 06/04/18 22:29 Aspirin (ASA) 81 mg DAILY ORAL 05/06/18 09:00 06/05/18 08:59 05/07/18 09:30 Cyanocobalamin (Vitamin B12) 1,000 mcg DAILY SUBQ 05/07/18 15:00 05/09/18 09:01 05/07/18 17:32 Dextrose (Dextrose 50%) 25 ml Q30M PRN IV Hypoglycemia 05/05/18 22:30 06/04/18 22:29 Dextrose (Dextrose 50%) 50 ml Q30M PRN IV Hypoglycemia 05/05/18 22:30 06/04/18 22:29 Heparin Sodium (Porcine) (Heparin 5000 units/ml) 5,000 units EVERY 12 HOURS SUBQ 05/05/18 22:45 06/04/18 22:44 05/07/18 09:32 Insulin Aspart (NovoLOG) BEFORE MEALS AND HS SUBQ 05/06/18 06:30 06/05/18 06:29 05/06/18 20:49 Iopamidol (Isovue-370 150ml) 150 ml NOW PRN INJ Radiology Procedure 05/06/18 22:30 05/08/18 22:28 Iopamidol (Isovue-370 150ml) 150 ml NOW PRN INJ Radiology Procedure 05/06/18 22:30 05/08/18 22:28 Metoprolol Tartrate (Lopressor) 25 mg Q12HR ORAL 05/06/18 21:00 06/05/18 20:59 05/07/18 09:30 Mirtazapine (Remeron) 7.5 mg BEDTIME ORAL 05/06/18 21:00 06/05/18 20:59 05/06/18 20:47 Patient Own Medication (Patient's Own Med) 1 ea DAILY TOPIC 05/06/18 14:00 06/05/18 13:59 05/07/18 09:30 Terbinafine HCl (LaMISIL 15gm) 1 applic DAILY TOPIC 05/07/18 09:00 06/06/18 08:59 05/07/18 09:30 Allergies: Coded Allergies: No Known Allergies (Unverified , 05/05/18) ROS Limited/Unobtainable: No Constitutional: Reports: no symptoms HEENT: Reports: no symptoms Cardiovascular: Reports: no symptoms Respiratory: Reports: no symptoms Gastrointestinal/Abdominal: Reports: no symptoms Genitourinary: Reports: no symptoms Neurologic/Psychiatric: Reports: no symptoms Subjective 72 YO M admitted with fall injury. Now NSTEMI. Cover for Int Med-Dr Olivas. Await cardiolite stress test 05/09/18 Objective Last Vital Signs Date Time Temp Pulse Resp B/P (MAP) Pulse Ox O2 Delivery O2 Flow Rate FiO2 05/07/18 16:00 97.8 66 20 113/64 (80) 97 05/07/18 09:00 Room Air General Appearance: WD/WN, no apparent distress, alert EENT: PERRL/EOMI, normal ENT inspection Neck: non-tender, normal alignment, supple, normal inspection Cardiovascular: normal peripheral pulses, normal rate, regular rhythm, no gallop/murmur, no JVD Respiratory/Chest: chest wall non-tender, lungs clear, normal breath sounds, no respiratory distress, no accessory muscle use Abdomen: normal bowel sounds, non tender, soft, no organomegaly, no mass Extremities: normal range of motion, non-tender Neurologic: features editor II-XII grossly normal, no motor/sensory deficits Skin: normal pigmentation, warm/dry Laboratory Tests Test 05/07/18 07:25 Troponin I 0.071 ng/mL (0.000-0.056) Pro-B-Type Natriuretic Peptide 367 pg/mL (0-125) H Triglycerides Level 119 MG/DL (30-150) Cholesterol Level 174 MG/DL (< 200) LDL Cholesterol 115 mg/dL (<100) H HDL Cholesterol 44 MG/DL (40-60) Cholesterol/HDL Ratio 4.0 (3.3-4.4) Microbiology Date/Time Source Procedure Growth Status 05/05/18 21:15 Nasal Nares MRSA Culture - Final NO METHICILLIN RESISTANT STAPH AUREUS... Complete 05/05/18 21:15 Rectum VRE Culture - Final NO VANCOMYCIN RESISTANT ENTEROCOCCUS ... Complete Intake and Output 05/06/18 05/07/18 19:00 07:00 Intake Total 740 ml Balance 740 ml Intake Oral 740 ml # Voids 3 1 Assessment/Plan Problem List: (1) NSTEMI (non-ST elevated myocardial infarction) Assessment & Plan: Await cardiac stress test Wed05/09/18. See cardiology note. (2) Elevated troponin (3) Diabetes mellitus type II, uncontrolled Assessment & Plan: continue novolog sliding scale (4) Right orbital fracture Assessment & Plan: Await ophthalmology consult (5) Nasal fracture (6) Facial contusion Status: not improved Montez Gifford MD May 07, 2018 18:17
--- NOTE | 2018-05-07 19:18 | General Progress Note ---
Progress Note Progress Note Patient seen and examined Consult dictated Faisal Roper MD May 07, 2018 19:18
--- NOTE | 2018-05-07 19:31 | Diagnostic Imaging Report ---
History: WEAK Exam: CTA HEAD Technique more: CTDI is 50.33 mGy and DLP is 2843 mGy-cm. Technique more: One or more of the following dose reduction techniques were used: automated exposure control, adjustment of the mA and/or kV according to patient size, use of iterative reconstruction technique. Comparison: None available FINDINGS: Anterior and posterior circulations appear intact. No vessel cut off, flow significant stenosis or aneurysm identified. Right facial and periorbital soft tissue swelling. IMPRESSION: No vessel cut off, flow significant stenosis or aneurysm identified. Right facial and periorbital soft tissue swelling. Exam: CTA NECK With Contrast Technique more: CTDI is 50.33 mGy and DLP is 2843 mGy-cm. Technique more: One or more of the following dose reduction techniques were used: automated exposure control, adjustment of the mA and/or kV according to patient size, use of iterative reconstruction technique. Comparison: None available FINDINGS: Bilateral carotid bulb and bifurcation calcific and soft plaque formation. Approximate 50-60% luminal stenosis of the proximal right internal carotid artery with contrast seen beyond. Approximate 60% luminal stenosis proximal left internal carotid artery with focal area of associated appearing ulcerative soft plaque formation for example axial 170, coronal 115 and sagittal 75. Contrast is seen beyond within the left internal carotid artery. Dominant appearing left vertebral artery, anatomic variant. The vertebrals appear patent. Calcific plaque formation of the proximal left subclavian artery with a focal area of high plaque formation with approximately 80% luminal reduction proximal left subclavian artery for example axial 263 with contrast seen beyond. This is just proximal to the left vertebral artery origin and may be at risk for subclavian steal syndrome. There is contrast beyond within the left subclavian and axillary artery. IMPRESSION: Bilateral carotid bulb and bifurcation calcific and soft plaque formation. Approximate 50-60% luminal stenosis of the proximal right internal carotid artery with contrast seen beyond. Approximate 60% luminal stenosis proximal left internal carotid artery with focal area of associated appearing ulcerative soft plaque formation for example axial 170, coronal 115 and sagittal 75. Contrast is seen beyond within the left internal carotid artery. Dominant appearing left vertebral artery, anatomic variant. The vertebrals appear patent. Calcific plaque formation of the proximal left subclavian artery with a focal area of high plaque formation with approximately 80% luminal reduction proximal left subclavian artery for example axial 263 with contrast seen beyond. This is just proximal to the left vertebral artery origin and may be at risk for subclavian steal syndrome. There is contrast beyond within the left subclavian and axillary artery.
[2018-05-07 20:00] VITALS: BP 113/70
[2018-05-07] MEDS: Atorvastatin 20mg tab ORAL SCH (20:23)
[2018-05-08] VITALS: BP 108/60
--- NOTE | 2018-05-08 01:46 | Consultation ---
DATE OF CONSULTATION: 05/07/2018 CONSULTING PHYSICIAN: Montez Pineda M.D. REQUESTING PHYSICIAN: Rik Olivas M.D. REASON FOR CONSULTATION: This consultation is at the request of Rik Olivas M.D. for evaluation of ocular and orbital trauma. HISTORY OF PRESENT ILLNESS: The patient is a very pleasant 72-year-old male, who has a history of type 2 diabetes mellitus, who was walking and fell several times hitting his right face and right ocular area. He came to the emergency room for further evaluation and also was admitted. He does not state that he has had any diplopia or photophobia associated with this. He also notes no change in vision. ALLERGIES: None known. MEDICATIONS: Uroxatral, aspirin, ciclopirox, melatonin, metformin, and terbinafine. PAST OCULAR HISTORY: 1. Status post removal of cataract and placement of posterior chamber intraocular lens, left eye. 2. Cataract, right eye. PAST MEDICAL HISTORY: Rog-lxnyydr-orqrufzme diabetes mellitus and history of ground-level mechanical falls. PAST SURGICAL HISTORY: Left elbow surgery. SOCIAL HISTORY: The patient moved to [place] from [place] to be with his son. REVIEW OF SYSTEMS: A 12-point review of systems was negative. SOCIAL HISTORY: Also, includes the patient being an ex-smoker, which he quit in 1987. PHYSICAL EXAMINATION: Upon exam, his visual acuity without correction was in the right eye, approximately J5 and in the left eye approximately J4. The pupils were 3 to 2 bilaterally without afferent pupillary defect and the extraocular motility was intact bilaterally. There is no evidence of any pain or diplopia on movement of his eyes. There is no evidence of any enophthalmos or exophthalmos. Jarad-Pen tonometry reveals an intraocular pressure in the right eye of 17 and in the left eye 18. The lids revealed marked periocular ecchymosis on the left lower eyelid that is ascending temporally. There is mild ecchymosis of the right upper lid. Mild soft tissue swelling is present periocularly OD. The conjunctiva and sclera involving an area of hemorrhage are mainly temporally and inferiorly. OS was within normal limits. The cornea was clear bilaterally. The anterior chamber to be quiet with no evidence of hyphema bilaterally. The iris was within normal limits bilaterally. The lens in the right eye revealed +2 and most changes in a well-centered PCIOL was present, OS. The dilated fundus examination revealed a cup-to-disc ratio of 0.2 bilaterally, despite sharp margins bilaterally. The macula appeared within normal limits bilaterally and posterior vitreous detachment with vitreous floaters were present bilaterally. There are no retinal hemorrhages or exudates noted. Note, superiorly there is approximately 2 cm area of hemorrhage that appeared to be a staphyloma change. CT of the orbits revealed a nondisplaced fracture of the orbital floor. No herniation of orbital contents into the sinus, right side. ASSESSMENT AND PLAN: 1. Ocular and periocular contusion, right eye. 1.1. There is no evidence of a ruptured globe, in addition no evidence of a hyphema. The retina does appear flat without evidence of any retinal tears or detachments, also hemorrhages. 1.2. In addition, there are no bony step-offs along the infraorbital ridge and there is no infraorbital anesthesia bilaterally. I have advised the patient to follow up in my office in approximately 1 week, but sooner on an as-needed basis. In addition, there is no evidence of any enophthalmos or exophthalmos bilaterally. 2. Cataract, right eye. 3. Status post cataract extraction with posterior chamber intraocular lens, left eye. 4. Posterior vitreous detachment with vitreous floaters, bilaterally. Thank you very much for allowing me to participate in this very nice patient's care. Again, I have asked him to follow up in my office in approximately 1 week. Please note, he may have an optoelectronics engineer closer to him "[facility]." If you have any questions, please do not hesitate to contact me. Montez Pineda M.D. DR: JAUN JOB#: [id number] CC: PAULA
--- NOTE | 2018-05-08 02:46 | Consultation ---
DATE OF CONSULTATION: 05/07/2018 VASCULAR SURGERY CONSULTATION CONSULTING PHYSICIAN: Faisal Roper M.D. REFERRING PHYSICIANS: Rik Olivas M.D. and Can Costello M.D. REASON FOR EVALUATION: Carotid stenosis and recurrent falls. HISTORY OF PRESENT ILLNESS: The patient is a 72-year-old male, who presented status post frequent falls with a facial fracture and right facial contusion. The patient underwent a CAT scan of the brain, which revealed no evidence of acute infarct. A carotid duplex revealed bilateral moderate carotid artery stenosis. The patient also was found to have non-STEMI myocardial infarction by Cardiology. Vascular Surgery is consulted for further evaluation. PAST MEDICAL HISTORY: As above. History of former heavy smoker, quit several years ago; hypertension; and diabetes mellitus. ALLERGIES: No known drug allergies. SOCIAL HISTORY: Denies history of smoking, drugs, or alcohol abuse. FAMILY HISTORY: Unremarkable. SYSTEM REVIEW: CARDIOVASCULAR: No history of chest pain or palpitation. PULMONARY: No cough. No hemoptysis. GASTROINTESTINAL: No history of abdominal pain, constipation, or diarrhea. GENITOURINARY: No dysuria, frequency, or urgency. NEUROLOGICAL: No history of strokes or seizures. PHYSICAL EXAMINATION: VITAL SIGNS: The patient is afebrile at 97 degrees, heart rate is 80, blood pressure is 116/61, respirations 18, and saturation is 97% on room air. HEAD AND NECK: The patient has palpable radial pulses. The face has actually showed bruising that is symmetric and tenderness with orbital contusion. There is no abrasion or tenderness. There is weak carotid bruit. LUNGS: Clear to auscultation. HEART: Regular rate and rhythm. ABDOMEN: Soft and nontender. EXTREMITIES: There are palpable popliteal pulses and intact pedal pulses bilaterally. LABORATORY AND IMAGING DATA: Revealed WBC 8.4, hemoglobin 13.8, and platelet count 219,000. Sodium 142, potassium 3.1, BUN 19, and creatinine 1.2. Troponin 0.21. Carotid duplex revealed moderate bilateral internal carotid artery stenosis. CT brain, no evidence of infarct. IMPRESSION: 1. Admitted with frequent falls with right facial and orbital contusion and fracture on a CT scan. 2. Bilateral moderate carotid artery stenosis by duplex. 3. History of diabetes mellitus, hypertension, and former smoker. 4. Non-STEMI myocardial infarction on EKG. PLAN AND RECOMMENDATIONS: 1. Daily antiplatelet and statin therapy. 2. CT angiogram of the neck and brain to delineate his carotid vasculopathy. 3. MRI of the brain to rule out any ischemic infarct. 4. Ophthalmology evaluation for his orbital fracture. 5. Cardiology assessment for his coronary disease. 6. Will follow up with the above imaging and assess need for for any future carotid revascularization. The above was discussed at length with the patient and the nurse at bedside. Faisal Roper M.D. DR: MADDIE JOB#: [id number] CC: Rik Olivas M.D.; Fax#: [phone] CAN COSTELLO M.D. ; FAX#: [phone] [facility]
[2018-05-08 04:00] VITALS: BP 110/72
[2018-05-08] MEDS: NovoLOG Insulin Flexpen SUBQ SCH ×4 (06:18→21:37)
[2018-05-08 07:53] LABS: BASOPHILS % (AUTO) 0.8 % (0.0-2.0); EOSINOPHILS % (AUTO) 5.4 % (0.0-3.0); HEMOGLOBIN 12.5 G/DL (14.2-18.0); LYMPHOCYTES % (AUTO) 28.9 % (20.0-45.0); MEAN CORPUSCULAR VOLUME 88 FL (80-99); MONOCYTES % (AUTO) 10.7 % (1.0-10.0); NEUTROPHILS % (AUTO) 54.2 % (45.0-75.0); PLATELET COUNT 193 K/UL (150-450); RED BLOOD COUNT 4.19 M/UL (4.70-6.10); RED CELL DISTRIBUTION WIDTH 11.8 % (11.6-14.8); WHITE BLOOD COUNT 6.8 K/UL (4.8-10.8)
[2018-05-08 08:00] VITALS: BP 94/56
[2018-05-08 08:11] LABS: ANION GAP 8 mmol/L (5-15); BLOOD UREA NITROGEN 20 mg/dL (7-18); CALCIUM 9.4 MG/DL (8.5-10.1); CARBON DIOXIDE 27 MMOL/L (21-32); CHLORIDE 107 MMOL/L (98-107); CREATININE 1.1 MG/DL (0.55-1.30); SODIUM 142 MMOL/L (136-145)
[2018-05-08] MEDS: Metoprolol 25mg tab ORAL SCH ×2 (08:51→21:00)
[2018-05-08] MEDS: Vitamin B12 1000mcg/ml Inj SUBQ SCH (08:51)
[2018-05-08] MEDS: Aspirin Baby 81mg ORAL SCH (08:51)
[2018-05-08] MEDS: TERBINAFINE 1% TOPIC SCH (08:52)
[2018-05-08] MEDS: CICLOPIROX 8% TOPIC SCH (08:52)
[2018-05-08] MEDS: Heparin 5000 units/ml inj SUBQ SCH ×2 (08:53→21:37)
[2018-05-08 12:00] VITALS: BP 91/54
--- NOTE | 2018-05-08 13:58 | Cardiac Electrophysiology PN ---
Assessment/Plan Assessment/Plan 1. Wcc-CD-fbqjofrky myocardial infarction with elevated troponins and abnormal EKG with T-wave inversion in I, aVL, and V3 to V6. The patient however denies any chest pain. Echo Nl EF. However, the patient does not have renal failure to have elevated troponins. Nuclear stress test on Wednesday 2. Status post multiple falls. The patient denies syncope. Echo Nl EF no . Carotid dupplex pending 3. Diabetes, on metformin. ELIZABETH RN Subjective Subjective Remained in Sinus dayami 50s. No CP or SOB Objective Last 24 Hour Vital Signs Date Time Temp Pulse Resp B/P (MAP) Pulse Ox O2 Delivery O2 Flow Rate FiO2 05/08/18 12:00 53 05/08/18 12:00 98.2 57 18 91/54 (66) 97 05/08/18 09:00 Room Air 05/08/18 08:51 86 94/56 05/08/18 08:00 63 05/08/18 08:00 98.1 86 19 94/56 (69) 97 05/08/18 04:00 98.0 59 18 110/72 (85) 95 05/08/18 04:00 53 05/08/18 00:00 97.5 55 17 108/60 (76) 94 05/08/18 00:00 51 05/07/18 21:00 Room Air 05/07/18 20:23 64 113/70 05/07/18 20:00 64 05/07/18 20:00 98.1 64 18 113/70 (84) 95 05/07/18 16:00 97.8 66 20 113/64 (80) 97 05/07/18 16:00 65 Intake and Output 05/07/18 05/08/18 19:00 07:00 Intake Total 720 ml 480 ml Balance 720 ml 480 ml Intake Oral 720 ml 480 ml # Voids 5 2 Laboratory Tests Test 05/08/18 05:51 White Blood Count 6.8 K/UL (4.8-10.8) Red Blood Count 4.19 M/UL (4.70-6.10) L Hemoglobin 12.5 G/DL (14.2-18.0) L Hematocrit 37.0 % (42.0-52.0) L Mean Corpuscular Volume 88 FL (80-99) Mean Corpuscular Hemoglobin 29.8 PG (27.0-31.0) Mean Corpuscular Hemoglobin Concent 33.7 G/DL (32.0-36.0) Red Cell Distribution Width 11.8 % (11.6-14.8) Platelet Count 193 K/UL (150-450) Mean Platelet Volume 6.3 FL (6.5-10.1) L Neutrophils (%) (Auto) 54.2 % (45.0-75.0) Lymphocytes (%) (Auto) 28.9 % (20.0-45.0) Monocytes (%) (Auto) 10.7 % (1.0-10.0) H Eosinophils (%) (Auto) 5.4 % (0.0-3.0) H Basophils (%) (Auto) 0.8 % (0.0-2.0) Sodium Level 142 MMOL/L (136-145) Potassium Level 4.0 MMOL/L (3.5-5.1) Chloride Level 107 MMOL/L (98-107) Carbon Dioxide Level 27 MMOL/L (21-32) Anion Gap 8 mmol/L (5-15) Blood Urea Nitrogen 20 mg/dL (7-18) H Creatinine 1.1 MG/DL (0.55-1.30) Estimat Glomerular Filtration Rate mL/min (>60) Glucose Level 116 MG/DL (74-106) H Calcium Level 9.4 MG/DL (8.5-10.1) Microbiology Date/Time Source Procedure Growth Status 05/05/18 21:15 Nasal Nares MRSA Culture - Final NO METHICILLIN RESISTANT STAPH AUREUS... Complete 05/05/18 21:15 Rectal Mucosa - Final NO CARBAPENEM-RESISTANT ENTEROBACTERI... Complete 05/05/18 21:15 Rectum VRE Culture - Final NO VANCOMYCIN RESISTANT ENTEROCOCCUS ... Complete Objective HEAD AND NECK: No JVD. His right eye is ecchymotic. There is a scar on the bridge of the nose. LUNGS: Clear. CARDIOVASCULAR: Regular S1 and S2 with no gallop or murmur. ABDOMEN: Soft. EXTREMITIES: No pitting edema. Lauri Faye MD May 08, 2018 13:58
--- NOTE | 2018-05-08 14:50 | Internal Med Progress Note ---
Subjective Date of Service: May 08, 2018 Physician Name Montez Gifford Attending Physician Rik Olivas MD Current Medications Medications (Trade) Dose Ordered Sig/Phill Route PRN Reason Start Time Stop Time Status Last Admin Dose Admin Acetaminophen (Tylenol) 650 mg Q6H PRN ORAL Mild Pain/Temp > 100.5 05/05/18 22:30 06/04/18 22:29 Aspirin (ASA) 81 mg DAILY ORAL 05/06/18 09:00 06/05/18 08:59 05/08/18 08:51 Atorvastatin Calcium (Lipitor) 20 mg BEDTIME ORAL 05/07/18 21:00 06/06/18 20:59 05/07/18 20:23 Cyanocobalamin (Vitamin B12) 1,000 mcg DAILY SUBQ 05/07/18 15:00 05/09/18 09:01 05/08/18 08:51 Dextrose (Dextrose 50%) 25 ml Q30M PRN IV Hypoglycemia 05/05/18 22:30 06/04/18 22:29 Dextrose (Dextrose 50%) 50 ml Q30M PRN IV Hypoglycemia 05/05/18 22:30 06/04/18 22:29 Heparin Sodium (Porcine) (Heparin 5000 units/ml) 5,000 units EVERY 12 HOURS SUBQ 05/05/18 22:45 06/04/18 22:44 05/08/18 08:53 Insulin Aspart (NovoLOG) BEFORE MEALS AND HS SUBQ 05/06/18 06:30 06/05/18 06:29 05/08/18 06:18 Iopamidol (Isovue-370 150ml) 150 ml NOW PRN INJ Radiology Procedure 05/06/18 22:30 05/08/18 22:28 Iopamidol (Isovue-370 150ml) 150 ml NOW PRN INJ Radiology Procedure 05/06/18 22:30 05/08/18 22:28 Metoprolol Tartrate (Lopressor) 25 mg Q12HR ORAL 05/06/18 21:00 06/05/18 20:59 05/08/18 08:51 Mirtazapine (Remeron) 7.5 mg BEDTIME ORAL 05/06/18 21:00 06/05/18 20:59 05/07/18 20:24 Neomycin/ Polymyxin/ Bacitracin (Neosporin) 1 applic BID TOPIC 05/08/18 18:00 06/07/18 17:59 Patient Own Medication (Patient's Own Med) 1 ea DAILY TOPIC 05/06/18 14:00 06/05/18 13:59 05/08/18 08:52 Terbinafine HCl (LaMISIL 15gm) 1 applic DAILY TOPIC 05/07/18 09:00 06/06/18 08:59 05/08/18 08:52 Allergies: Coded Allergies: No Known Allergies (Unverified , 05/05/18) ROS Limited/Unobtainable: No Constitutional: Reports: no symptoms HEENT: Reports: no symptoms Cardiovascular: Reports: no symptoms Respiratory: Reports: no symptoms Gastrointestinal/Abdominal: Reports: no symptoms Genitourinary: Reports: no symptoms Neurologic/Psychiatric: Reports: no symptoms Subjective 72 YO M admitted with fall injury. Now NSTEMI. Cover for Int Med-Dr Olivas. Await cardiolite stress test 05/09/18 Objective Last Vital Signs Date Time Temp Pulse Resp B/P (MAP) Pulse Ox O2 Delivery O2 Flow Rate FiO2 05/08/18 12:00 53 05/08/18 12:00 98.2 18 91/54 (66) 97 05/08/18 09:00 Room Air Laboratory Tests Test 05/08/18 05:51 White Blood Count 6.8 K/UL (4.8-10.8) Red Blood Count 4.19 M/UL (4.70-6.10) L Hemoglobin 12.5 G/DL (14.2-18.0) L Hematocrit 37.0 % (42.0-52.0) L Mean Corpuscular Volume 88 FL (80-99) Mean Corpuscular Hemoglobin 29.8 PG (27.0-31.0) Mean Corpuscular Hemoglobin Concent 33.7 G/DL (32.0-36.0) Red Cell Distribution Width 11.8 % (11.6-14.8) Platelet Count 193 K/UL (150-450) Mean Platelet Volume 6.3 FL (6.5-10.1) L Neutrophils (%) (Auto) 54.2 % (45.0-75.0) Lymphocytes (%) (Auto) 28.9 % (20.0-45.0) Monocytes (%) (Auto) 10.7 % (1.0-10.0) H Eosinophils (%) (Auto) 5.4 % (0.0-3.0) H Basophils (%) (Auto) 0.8 % (0.0-2.0) Sodium Level 142 MMOL/L (136-145) Potassium Level 4.0 MMOL/L (3.5-5.1) Chloride Level 107 MMOL/L (98-107) Carbon Dioxide Level 27 MMOL/L (21-32) Anion Gap 8 mmol/L (5-15) Blood Urea Nitrogen 20 mg/dL (7-18) H Creatinine 1.1 MG/DL (0.55-1.30) Estimat Glomerular Filtration Rate mL/min (>60) Glucose Level 116 MG/DL (74-106) H Calcium Level 9.4 MG/DL (8.5-10.1) Microbiology Date/Time Source Procedure Growth Status 05/05/18 21:15 Nasal Nares MRSA Culture - Final NO METHICILLIN RESISTANT STAPH AUREUS... Complete 05/05/18 21:15 Rectal Mucosa - Final NO CARBAPENEM-RESISTANT ENTEROBACTERI... Complete 05/05/18 21:15 Rectum VRE Culture - Final NO VANCOMYCIN RESISTANT ENTEROCOCCUS ... Complete Intake and Output 05/07/18 05/08/18 19:00 07:00 Intake Total 720 ml 480 ml Balance 720 ml 480 ml Intake Oral 720 ml 480 ml # Voids 5 2 Objective General Appearance: WD/WN, no apparent distress, alert EENT: PERRL/EOMI, normal ENT inspection Neck: non-tender, normal alignment, supple, normal inspection Cardiovascular: normal peripheral pulses, normal rate, regular rhythm, no gallop/murmur, no JVD Respiratory/Chest: chest wall non-tender, lungs clear, normal breath sounds, no respiratory distress, no accessory muscle use Abdomen: normal bowel sounds, non tender, soft, no organomegaly, no mass Extremities: normal range of motion, non-tender Neurologic: administrative processor II-XII grossly normal, no motor/sensory deficits Skin: normal pigmentation, warm/dry Assessment/Plan Problem List: (1) NSTEMI (non-ST elevated myocardial infarction) Assessment & Plan: Await cardiac stress test 05/09/18. See cardiology note. (2) Elevated troponin (3) Diabetes mellitus type II, uncontrolled Assessment & Plan: continue novolog sliding scale (4) Right orbital fracture Assessment & Plan: Await ophthalmology consult (5) Nasal fracture (6) Facial contusion Status: not improved Montez Gifford MD May 08, 2018 14:50
[2018-05-08 16:00] VITALS: BP 111/62
[2018-05-08] MEDS: Neosporin Oint Ud Pkt TOPIC SCH (17:38)
[2018-05-08 20:00] VITALS: BP 116/64
[2018-05-08] MEDS ORDERED: Lexiscan 0.4mg/5ml syringe IV PRN (20:30)
[2018-05-08] MEDS: Atorvastatin 20mg tab ORAL SCH (21:35)
[2018-05-09] VITALS: BP 103/57
[2018-05-09 04:00] VITALS: BP 129/75
[2018-05-09] MEDS: NovoLOG Insulin Flexpen SUBQ SCH ×4 (06:30→20:59)
--- NOTE | 2018-05-09 07:00 | Cardiology Report ---
APPROVED REPORT EXAM: Two-dimensional and M-mode echocardiogram with Doppler and color Doppler. INDICATION Left Ventricular Function M-Mode DIMENSIONS IVSd1.6 (0.7-1.1cm)Left Atrium (MM)3.5 (1.6-4.0cm) LVDd4.2 (3.5-5.6cm)Aortic Root2.9 (2.0-3.7cm) PWd1.2 (0.7-1.1cm)Aortic Cusp Exc.1.2 (1.5-2.0cm) LVDs1.4 (2.5-4.0cm) PWs2.2 cm Normal left ventricular chamber size, systolic function and wall motion. Left ventricular ejection fraction estimated to be 60 %. Mild left ventricular hypertrophy. Anterior Echo-free space, may be due to pericardial fat or effusion. All other cardiac chamber sizes are within normal limits. Moderate focal aortic valve sclerosis with reduced cusp excursion. Mildly thickened mitral valve leaflets with normal excursion. Mild mitral annulus and aortic root calcification. Normal pulmonic valve structure. Normal tricuspid valve structure. IVC is normal in size with physiological collapse. A color flow and spectral Doppler study was performed and revealed: Trace aortic insufficiency. Peak aortic valve gradient o 19 mmHg and a mean of 11 mmHg. Aortic valve area 1.7 cm2 calculated by continuity equation. Trace mitral regurgitation. Mitral diastolic velocities suggest mild left ventricular diastolic dysfunction (Grade I). Mild tricuspid regurgitation. Tricuspid systolic velocities suggests peak right ventricular systolic pressure of 23 mmHg. Mild pulmonic regurgitation present.
[2018-05-09 07:32] LABS: BASOPHILS % (AUTO) 1.2 % (0.0-2.0); EOSINOPHILS % (AUTO) 5.3 % (0.0-3.0); HEMATOCRIT 37.5 % (42.0-52.0); HEMOGLOBIN 13.1 G/DL (14.2-18.0); LYMPHOCYTES % (AUTO) 25.1 % (20.0-45.0); MEAN CORPUSCULAR VOLUME 88 FL (80-99); MONOCYTES % (AUTO) 9.7 % (1.0-10.0); NEUTROPHILS % (AUTO) 58.8 % (45.0-75.0); PLATELET COUNT 177 K/UL (150-450); RED BLOOD COUNT 4.26 M/UL (4.70-6.10); RED CELL DISTRIBUTION WIDTH 11.5 % (11.6-14.8); WHITE BLOOD COUNT 6.6 K/UL (4.8-10.8)
[2018-05-09 07:42] LABS: ANION GAP 6 mmol/L (5-15); BLOOD UREA NITROGEN 20 mg/dL (7-18); CARBON DIOXIDE 27 MMOL/L (21-32); CHLORIDE 107 MMOL/L (98-107); POTASSIUM 4.1 MMOL/L (3.5-5.1); SODIUM 140 MMOL/L (136-145)
[2018-05-09 08:00] VITALS: BP 122/70
[2018-05-09] MEDS: CICLOPIROX 8% TOPIC SCH (08:43)
[2018-05-09] MEDS: TERBINAFINE 1% TOPIC SCH (08:43)
[2018-05-09] MEDS: Aspirin Baby 81mg ORAL SCH (08:43)
[2018-05-09] MEDS: Vitamin B12 1000mcg/ml Inj SUBQ SCH (08:43)
[2018-05-09] MEDS: Neosporin Oint Ud Pkt TOPIC SCH ×2 (08:43→18:00)
[2018-05-09] MEDS: Heparin 5000 units/ml inj SUBQ SCH ×2 (08:45→21:06)
[2018-05-09] MEDS: Metoprolol 25mg tab ORAL SCH ×2 (08:45→21:00)
--- NOTE | 2018-05-09 10:56 | Diagnostic Imaging Report ---
Indication: Weakness, trauma to face and head Technique: sagittal T1 fast spin echo, axial T1 FLAIR, axial T2 FLAIR, axial T2 FS PROPELLER, axial T2* GRE, axial diffusion weighted images. ADC and exponential ADC maps generated Comparison: Brain CT dated 05/05/2018 Findings: No abnormal areas of restricted diffusion to suggest acute infarction. No acute hemorrhage or edema. No mass effect nor midline shift. There is age-related enlargement of the ventricles and extra-axial CSF spaces. There is minimal periventricular deep white matter low-attenuation. There are bilateral small basal ganglia lacunar infarct versus prominent perivascular spaces. Old lacunar infarct is seen in the right cerebellar hemisphere. The vascular flow voids are preserved.. Visualized orbits and sinuses are unremarkable. Impression: Chronic and age-related changes is described Negative for acute intracranial bleed, infarct, or mass effect
[2018-05-09 12:00] VITALS: BP 119/65
--- NOTE | 2018-05-09 12:55 | Pulmonology Progress Note ---
Assessment/Plan Problems: (1) positivie troponin (2) Acute encephalopathy (3) Gait instability (4) Recurrent falls (5) Diabetes mellitus Assessment/Plan stress study today sliding scale diabetic diet pt/ot snif placement Subjective ROS Limited/Unobtainable: No Constitutional: Reports: no symptoms HEENT: Repors: no symptoms Respiratory: Reports: no symptoms Allergies: Coded Allergies: No Known Allergies (Unverified , 05/05/18) Objective Last 24 Hour Vital Signs Date Time Temp Pulse Resp B/P (MAP) Pulse Ox O2 Delivery O2 Flow Rate FiO2 05/09/18 12:00 97.1 63 20 119/65 (83) 100 05/09/18 09:00 Room Air 05/09/18 08:00 96.8 59 20 122/70 (87) 100 05/09/18 08:00 56 05/09/18 04:00 56 05/09/18 04:00 98.0 68 20 129/75 (93) 96 05/09/18 00:00 97.0 54 20 103/57 (72) 94 05/09/18 00:00 54 05/08/18 21:00 Room Air 05/08/18 21:00 55 116/64 05/08/18 20:00 53 05/08/18 20:00 97.8 55 20 116/64 (81) 96 05/08/18 16:00 98.1 78 18 111/62 (78) 97 05/08/18 16:00 57 Intake and Output 05/08/18 05/09/18 18:59 06:59 Intake Total 300 ml 240 ml Balance 300 ml 240 ml Intake Oral 300 ml 240 ml # Voids 3 3 General Appearance: WD/WN HEENT: normocephalic Respiratory/Chest: chest wall non-tender, lungs clear Cardiovascular: normal peripheral pulses, regular rhythm Abdomen: normal bowel sounds, no organomegaly Genitourinary: normal external genitalia Extremities: no clubbing Skin: no rash Laboratory Tests 05/09/18 07:05: White Blood Count 6.6, Red Blood Count 4.26L, Hemoglobin 13.1L, Hematocrit 37.5L , Mean Corpuscular Volume 88, Mean Corpuscular Hemoglobin 30.7, Mean Corpuscular Hemoglobin Concent 34.9, Red Cell Distribution Width 11.5L, Platelet Count 177, Mean Platelet Volume 7.0, Neutrophils (%) (Auto) 58.8, Lymphocytes (%) (Auto) 25.1, Monocytes (%) (Auto) 9.7, Eosinophils (%) (Auto) 5.3H, Basophils (%) (Auto) 1.2, Sodium Level 140, Potassium Level 4.1, Chloride Level 107, Carbon Dioxide Level 27, Anion Gap 6, Blood Urea Nitrogen 20H, Creatinine 1.0, Estimat Glomerular Filtration Rate , Glucose Level 107H, Calcium Level 9.0 Current Medications Medications (Trade) Dose Ordered Sig/Phill Route PRN Reason Start Time Stop Time Status Last Admin Dose Admin Acetaminophen (Tylenol) 650 mg Q6H PRN ORAL Mild Pain/Temp > 100.5 05/05/18 22:30 06/04/18 22:29 Aspirin (ASA) 81 mg DAILY ORAL 05/06/18 09:00 06/05/18 08:59 05/09/18 08:43 Atorvastatin Calcium (Lipitor) 20 mg BEDTIME ORAL 05/07/18 21:00 06/06/18 20:59 05/08/18 21:35 Dextrose (Dextrose 50%) 25 ml Q30M PRN IV Hypoglycemia 05/05/18 22:30 06/04/18 22:29 Dextrose (Dextrose 50%) 50 ml Q30M PRN IV Hypoglycemia 05/05/18 22:30 06/04/18 22:29 Heparin Sodium (Porcine) (Heparin 5000 units/ml) 5,000 units EVERY 12 HOURS SUBQ 05/05/18 22:45 06/04/18 22:44 05/09/18 08:45 Insulin Aspart (NovoLOG) BEFORE MEALS AND HS SUBQ 05/06/18 06:30 06/05/18 06:29 05/08/18 06:18 Metoprolol Tartrate (Lopressor) 25 mg Q12HR ORAL 05/06/18 21:00 06/05/18 20:59 05/08/18 08:51 Mirtazapine (Remeron) 7.5 mg BEDTIME ORAL 05/06/18 21:00 06/05/18 20:59 05/08/18 21:35 Neomycin/ Polymyxin/ Bacitracin (Neosporin) 1 applic BID TOPIC 05/08/18 18:00 06/07/18 17:59 05/09/18 08:43 Patient Own Medication (Patient's Own Med) 1 ea DAILY TOPIC 05/06/18 14:00 06/05/18 13:59 05/09/18 08:43 Regadenoson (Lexiscan) 0.4 mg ONCE PRN IV stress test 05/08/18 20:30 05/10/18 23:59 Terbinafine HCl (LaMISIL 15gm) 1 applic DAILY TOPIC 05/07/18 09:00 06/06/18 08:59 05/09/18 08:43 Mary Costello MD May 09, 2018 12:55
--- NOTE | 2018-05-09 13:16 | Cardiac Electrophysiology PN ---
Assessment/Plan Assessment/Plan 1. [id number] myocardial infarction with elevated troponins and abnormal EKG with T-wave inversion in I, aVL, and V3 to V6. The patient however denies any chest pain. Echo Nl EF. Nuclear stress test today pending 2. Status post multiple falls. The patient denies syncope. Echo Nl EF no . MRI brain Chronic and age-related changes is described Negative for acute intracranial bleed, infarct, or mass effect 3. Diabetes, on metformin. DW RN Subjective Subjective No events in Sinus dayami. No CP or SOB. Stress test pending today Objective Last 24 Hour Vital Signs Date Time Temp Pulse Resp B/P (MAP) Pulse Ox O2 Delivery O2 Flow Rate FiO2 05/09/18 12:00 97.1 63 20 119/65 (83) 100 05/09/18 09:00 Room Air 05/09/18 08:00 96.8 59 20 122/70 (87) 100 05/09/18 08:00 56 05/09/18 04:00 56 05/09/18 04:00 98.0 68 20 129/75 (93) 96 05/09/18 00:00 97.0 54 20 103/57 (72) 94 05/09/18 00:00 54 05/08/18 21:00 Room Air 05/08/18 21:00 55 116/64 05/08/18 20:00 53 05/08/18 20:00 97.8 55 20 116/64 (81) 96 05/08/18 16:00 98.1 78 18 111/62 (78) 97 05/08/18 16:00 57 Intake and Output 05/08/18 05/09/18 18:59 06:59 Intake Total 300 ml 240 ml Balance 300 ml 240 ml Intake Oral 300 ml 240 ml # Voids 3 3 Laboratory Tests Test 05/09/18 07:05 White Blood Count 6.6 K/UL (4.8-10.8) Red Blood Count 4.26 M/UL (4.70-6.10) L Hemoglobin 13.1 G/DL (14.2-18.0) L Hematocrit 37.5 % (42.0-52.0) L Mean Corpuscular Volume 88 FL (80-99) Mean Corpuscular Hemoglobin 30.7 PG (27.0-31.0) Mean Corpuscular Hemoglobin Concent 34.9 G/DL (32.0-36.0) Red Cell Distribution Width 11.5 % (11.6-14.8) L Platelet Count 177 K/UL (150-450) Mean Platelet Volume 7.0 FL (6.5-10.1) Neutrophils (%) (Auto) 58.8 % (45.0-75.0) Lymphocytes (%) (Auto) 25.1 % (20.0-45.0) Monocytes (%) (Auto) 9.7 % (1.0-10.0) Eosinophils (%) (Auto) 5.3 % (0.0-3.0) H Basophils (%) (Auto) 1.2 % (0.0-2.0) Sodium Level 140 MMOL/L (136-145) Potassium Level 4.1 MMOL/L (3.5-5.1) Chloride Level 107 MMOL/L (98-107) Carbon Dioxide Level 27 MMOL/L (21-32) Anion Gap 6 mmol/L (5-15) Blood Urea Nitrogen 20 mg/dL (7-18) H Creatinine 1.0 MG/DL (0.55-1.30) Estimat Glomerular Filtration Rate mL/min (>60) Glucose Level 107 MG/DL (74-106) H Calcium Level 9.0 MG/DL (8.5-10.1) Objective HEAD AND NECK: No JVD. His right eye is ecchymotic. There is a scar on the bridge of the nose. LUNGS: Clear. CARDIOVASCULAR: Regular S1 and S2 with no gallop or murmur. ABDOMEN: Soft. EXTREMITIES: No pitting edema. Lauri Faye MD May 09, 2018 13:16
--- NOTE | 2018-05-09 15:44 | Diagnostic Imaging Report ---
Indications: Chest pain and syncope Technique: Single day single isotope protocol utilized. Initially, resting images obtained using IV administration 8.9 millicuries 99M technetium Myoview. Subsequently, patient underwent lexiscan stress testing. See cardiology report for details. During Lexiscan infusion, IV administration 30.4 mCi 99 M technetium Myoview. SPECT and planar images obtained. SPECT images gated to 8 phases of the cardiac cycle were also obtained, and reformatted into cine images for evaluation of ejection fraction. Comparison: none Findings: Presence or absence of symptoms during infusion is not described on the cardiology report. Per cardiology report, resting EKG demonstrates normal sinus rhythm with baseline ST-T wave changes. No ST-T wave changes noted during the infusion. Imaging demonstrates normal poststress perfusion, no fixed nor reversible post stress perfusion defects are demonstrated. Normal cardiac chamber size. Calculated post stress ejection fraction 69%. No focal wall motion abnormality Impression: Nonischemic clinical response to pharmacologic stress, per cardiology report Nonischemic electrocardiographic response to pharmacologic stress, per cardiology report No imaging findings to suggest ischemia, at level of stress achieved. Calculated post stress ejection fraction 69%
[2018-05-09 16:00] VITALS: BP 109/60
--- NOTE | 2018-05-09 19:45 | Internal Med Progress Note ---
Subjective Date of Service: May 09, 2018 Physician Name Montez Gifford Attending Physician Rik Olivas MD Current Medications Medications (Trade) Dose Ordered Sig/Phill Route PRN Reason Start Time Stop Time Status Last Admin Dose Admin Acetaminophen (Tylenol) 650 mg Q6H PRN ORAL Mild Pain/Temp > 100.5 05/05/18 22:30 06/04/18 22:29 Aspirin (ASA) 81 mg DAILY ORAL 05/06/18 09:00 06/05/18 08:59 05/09/18 08:43 Atorvastatin Calcium (Lipitor) 20 mg BEDTIME ORAL 05/07/18 21:00 06/06/18 20:59 05/08/18 21:35 Dextrose (Dextrose 50%) 25 ml Q30M PRN IV Hypoglycemia 05/05/18 22:30 06/04/18 22:29 Dextrose (Dextrose 50%) 50 ml Q30M PRN IV Hypoglycemia 05/05/18 22:30 06/04/18 22:29 Heparin Sodium (Porcine) (Heparin 5000 units/ml) 5,000 units EVERY 12 HOURS SUBQ 05/05/18 22:45 06/04/18 22:44 05/09/18 08:45 Insulin Aspart (NovoLOG) BEFORE MEALS AND HS SUBQ 05/06/18 06:30 06/05/18 06:29 05/08/18 06:18 Metoprolol Tartrate (Lopressor) 25 mg Q12HR ORAL 05/06/18 21:00 06/05/18 20:59 05/08/18 08:51 Mirtazapine (Remeron) 7.5 mg BEDTIME ORAL 05/06/18 21:00 06/05/18 20:59 05/08/18 21:35 Neomycin/ Polymyxin/ Bacitracin (Neosporin) 1 applic BID TOPIC 05/08/18 18:00 06/07/18 17:59 05/09/18 08:43 Patient Own Medication (Patient's Own Med) 1 ea DAILY TOPIC 05/06/18 14:00 06/05/18 13:59 05/09/18 08:43 Regadenoson (Lexiscan) 0.4 mg ONCE PRN IV stress test 05/08/18 20:30 05/10/18 23:59 Terbinafine HCl (LaMISIL 15gm) 1 applic DAILY TOPIC 05/07/18 09:00 06/06/18 08:59 05/09/18 08:43 Allergies: Coded Allergies: No Known Allergies (Unverified , 05/05/18) ROS Limited/Unobtainable: No Constitutional: Reports: no symptoms HEENT: Reports: no symptoms Cardiovascular: Reports: chest pain Respiratory: Reports: no symptoms Gastrointestinal/Abdominal: Reports: no symptoms Genitourinary: Reports: no symptoms Neurologic/Psychiatric: Reports: no symptoms Subjective 72 YO M admitted with fall injury. Now NSTEMI. Cover for Int Med-Dr Olivas. Await cardiolite stress test result 05/09/18 Objective Last Vital Signs Date Time Temp Pulse Resp B/P (MAP) Pulse Ox O2 Delivery O2 Flow Rate FiO2 05/09/18 16:00 85 05/09/18 16:00 96.3 20 109/60 (76) 100 05/09/18 09:00 Room Air Laboratory Tests Test 05/09/18 07:05 White Blood Count 6.6 K/UL (4.8-10.8) Red Blood Count 4.26 M/UL (4.70-6.10) L Hemoglobin 13.1 G/DL (14.2-18.0) L Hematocrit 37.5 % (42.0-52.0) L Mean Corpuscular Volume 88 FL (80-99) Mean Corpuscular Hemoglobin 30.7 PG (27.0-31.0) Mean Corpuscular Hemoglobin Concent 34.9 G/DL (32.0-36.0) Red Cell Distribution Width 11.5 % (11.6-14.8) L Platelet Count 177 K/UL (150-450) Mean Platelet Volume 7.0 FL (6.5-10.1) Neutrophils (%) (Auto) 58.8 % (45.0-75.0) Lymphocytes (%) (Auto) 25.1 % (20.0-45.0) Monocytes (%) (Auto) 9.7 % (1.0-10.0) Eosinophils (%) (Auto) 5.3 % (0.0-3.0) H Basophils (%) (Auto) 1.2 % (0.0-2.0) Sodium Level 140 MMOL/L (136-145) Potassium Level 4.1 MMOL/L (3.5-5.1) Chloride Level 107 MMOL/L (98-107) Carbon Dioxide Level 27 MMOL/L (21-32) Anion Gap 6 mmol/L (5-15) Blood Urea Nitrogen 20 mg/dL (7-18) H Creatinine 1.0 MG/DL (0.55-1.30) Estimat Glomerular Filtration Rate mL/min (>60) Glucose Level 107 MG/DL (74-106) H Calcium Level 9.0 MG/DL (8.5-10.1) Intake and Output 05/08/18 05/09/18 19:00 07:00 Intake Total 300 ml 240 ml Balance 300 ml 240 ml Intake Oral 300 ml 240 ml # Voids 3 3 Objective General Appearance: WD/WN, no apparent distress, alert EENT: PERRL/EOMI, normal ENT inspection Neck: non-tender, normal alignment, supple, normal inspection Cardiovascular: normal peripheral pulses, normal rate, regular rhythm, no gallop/murmur, no JVD Respiratory/Chest: chest wall non-tender, lungs clear, normal breath sounds, no respiratory distress, no accessory muscle use Abdomen: normal bowel sounds, non tender, soft, no organomegaly, no mass Extremities: normal range of motion, non-tender 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 See cardiology note. (2) Elevated troponin (3) Diabetes mellitus type II, uncontrolled Assessment & Plan: continue novolog sliding scale (4) Right orbital fracture Assessment & Plan: Await ophthalmology consult (5) Nasal fracture (6) Facial contusion Status: progressing, not improved Montez Gifford MD May 09, 2018 19:45
[2018-05-09 20:00] VITALS: BP 127/74
--- NOTE | 2018-05-09 20:29 | Neurology Progress Note ---
Interim History Interim History Interim History Mr. Marino feels much better. The mind is clear. He denies any headache. He has been walking more and has been much more steady on his feet. He feels steady when he stands up. He denies any further falls. He denies any new neurologic symptoms. Review of Systems Neuro Review of Systems Benign. Objective Physical Exam Last Vital Signs Date Time Temp Pulse Resp B/P (MAP) Pulse Ox O2 Delivery O2 Flow Rate FiO2 05/09/18 20:00 98.6 63 20 127/74 (91) 100 05/09/18 09:00 Room Air Laboratory Tests Test 05/09/18 07:05 White Blood Count 6.6 K/UL (4.8-10.8) Red Blood Count 4.26 M/UL (4.70-6.10) L Hemoglobin 13.1 G/DL (14.2-18.0) L Hematocrit 37.5 % (42.0-52.0) L Mean Corpuscular Volume 88 FL (80-99) Mean Corpuscular Hemoglobin 30.7 PG (27.0-31.0) Mean Corpuscular Hemoglobin Concent 34.9 G/DL (32.0-36.0) Red Cell Distribution Width 11.5 % (11.6-14.8) L Platelet Count 177 K/UL (150-450) Mean Platelet Volume 7.0 FL (6.5-10.1) Neutrophils (%) (Auto) 58.8 % (45.0-75.0) Lymphocytes (%) (Auto) 25.1 % (20.0-45.0) Monocytes (%) (Auto) 9.7 % (1.0-10.0) Eosinophils (%) (Auto) 5.3 % (0.0-3.0) H Basophils (%) (Auto) 1.2 % (0.0-2.0) Sodium Level 140 MMOL/L (136-145) Potassium Level 4.1 MMOL/L (3.5-5.1) Chloride Level 107 MMOL/L (98-107) Carbon Dioxide Level 27 MMOL/L (21-32) Anion Gap 6 mmol/L (5-15) Blood Urea Nitrogen 20 mg/dL (7-18) H Creatinine 1.0 MG/DL (0.55-1.30) Estimat Glomerular Filtration Rate mL/min (>60) Glucose Level 107 MG/DL (74-106) H Calcium Level 9.0 MG/DL (8.5-10.1) Neurologic Exam Objective PHYSICAL EXAMINATION: GENERAL: He is a well-developed and well-nourished pleasant gentleman , lying in bed, in no acute distress. HEAD: Normocephalic with right periorbital ecchymosis, right facial and nasal abrasions, and right subconjunctival hemorrhage. NECK: No neck rigidity was observed. EENT: Benign except for right subconjunctival hemorrhage. NEUROLOGICAL EXAMINATION: MENTAL STATUS EXAMINATION: He was awake and alert. He was oriented to person, place, and time. He was able to recall 3/3 words immediately after 1 minute and after 3 minutes. He was able to remember presidents Trump through Nunez Senior. His mathematical skills were good. His visuospatial function was preserved. SPEECH: He had no dysarthria. LANGUAGE: He had no aphasia. CRANIAL NERVE EXAMINATION: II: The visual hurtado were intact on confrontation testing. III, IV & : External ocular movements were full. Pupils were 3 mm in diameter equal, round, regular, and reactive to light. V: He had normal facial sensations, and the temporales, masseters, and pterygoids functioned normally. VII: He had normal facial expressions and no facial asymmetry. VIII: He was able to hear well bilaterally and had no nystagmus. IX: The palate moved symmetrically on phonation. X: He had no hoarseness of voice. XI: The sternocleidomastoids and trapezii functioned normally. XII: The tongue was in the midline without any fasciculations or atrophy. MOTOR SYSTEM: The tone was normal in all four extremities. Examination of muscle mass revealed no focal wasting. Examination of power revealed G 5/5 power in all muscles. SENSORY EXAMINATION: He had intact sensations to pinprick, light touch, and graphesthesia. Position sense was diminished in the toes bilaterally, but was normal in the fingers bilaterally. COORDINATION: He performed well on [id number]-[id number] and [id number] testing. On Romberg test, he fell backwards. REFLEXES: 0 at the biceps, triceps, brachioradialis, knees, and ankles. The plantar responses were flexor bilaterally. STANCE: He had a minimally wide-based stance. GAIT: He had a minimally wide-based but stable gait. Impression/Recommendations Diagnostic Impression 1. Mr. Segundo Kuhn is a 72-year-old, right-handed, gentleman, who does have a past history of diabetes mellitus, unsteadiness on his feet which he attributes to left knee problems, and a recent respiratory infection who was functioning well until 05/05/2018, when he tripped and fell down twice on the sidewalk. He in that process sustained right facial and nose injuries. There was no loss of consciousness. 2. He feels much better. The mind is clear. He denies any headache. He has been walking more and has been much more steady on his feet. He feels steady when he stands up. He denies any further falls. He denies any new neurologic symptoms. 3. On neurological examination, at this time, he does demonstrate a right periorbital ecchymosis, right subconjunctival hemorrhage, abrasions over his right face and nose, decreased position sense in the toes bilaterally, globally absent deep tendon reflexes, a tendency to fall backwards on Romberg test, and a minimally wide-based stance and gait. 4. The CT scan of the brain without contrast reveals mild atrophy and deep white matter changes, but no acute pathology. 5. Laboratory data on my initial evaluation revealed that on admission his WBC count was elevated to 13,600, and was then down to 8400. He was also mildly anemic with a hemoglobin of 13.9 G. His chemistry panel was essentially benign. He did have a troponin elevated to 0.21 when he came in, which had dropped to 0.16. 6. Further laboratory tests have revealed that he is Vitamin B 12 deficient with a level of 308. 7. 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 The most likely etiology for his neuropathy would be a diabetic neuropathy and B 12 deficiency. His stance and gait have improved rapidly - thus there is a high probability that the B 12 deficiency was playing a significant role in his neuropathic dysfunction. 8. The patient has also sustained close head trauma with right facial abrasions , right periorbital ecchymosis, and right subconjunctival hemorrhage, but no other signs of the brain dysfunction. Recommendations 1. Continue present management. 2. Vitamin B 12 - 1000 mcg SC daily x 3 days and then monthly. 3. He was told to make sure that his diabetes is well controlled. 4. Mobilize with the help of physical therapy. 5. Increase activity as tolerated. Shine Sanchez M.D., M.S.P.H. Shine Sanchez MD May 09, 2018 20:29
[2018-05-09] MEDS: Atorvastatin 20mg tab ORAL SCH (21:01)
[2018-05-10] VITALS: BP 108/64
--- NOTE | 2018-05-10 00:35 | General Progress Note ---
Assessment/Plan Status: stable Assessment/Plan AXIS I Anxiety disorder and insomnia. PLAN: 1. The patient will be started on Remeron 7.5 mg at bedtime. 2. We will continue to follow and readjust the medications. Subjective Date patient seen: May 09, 2018 Neurologic/Psychiatric: Reports: anxiety, depressed, emotional problems Allergies: Coded Allergies: No Known Allergies (Unverified , 05/05/18) Objective Last 24 Hour Vital Signs Date Time Temp Pulse Resp B/P (MAP) Pulse Ox O2 Delivery O2 Flow Rate FiO2 05/09/18 21:00 Room Air Room Air 05/09/18 20:00 61 05/09/18 20:00 98.6 63 20 127/74 (91) 100 05/09/18 16:00 85 05/09/18 16:00 96.3 70 20 109/60 (76) 100 05/09/18 12:00 97.1 63 20 119/65 (83) 100 05/09/18 12:00 55 05/09/18 09:00 Room Air 05/09/18 08:00 96.8 59 20 122/70 (87) 100 05/09/18 08:00 56 05/09/18 04:00 56 05/09/18 04:00 98.0 68 20 129/75 (93) 96 Intake and Output 05/09/18 05/10/18 18:59 06:59 Intake Total 630 ml Output Total 350 ml Balance 280 ml Intake Oral 630 ml Output Urine Total 350 ml Laboratory Tests 05/09/18 07:05: White Blood Count 6.6, Red Blood Count 4.26L, Hemoglobin 13.1L, Hematocrit 37.5L , Mean Corpuscular Volume 88, Mean Corpuscular Hemoglobin 30.7, Mean Corpuscular Hemoglobin Concent 34.9, Red Cell Distribution Width 11.5L, Platelet Count 177, Mean Platelet Volume 7.0, Neutrophils (%) (Auto) 58.8, Lymphocytes (%) (Auto) 25.1, Monocytes (%) (Auto) 9.7, Eosinophils (%) (Auto) 5.3H, Basophils (%) (Auto) 1.2, Sodium Level 140, Potassium Level 4.1, Chloride Level 107, Carbon Dioxide Level 27, Anion Gap 6, Blood Urea Nitrogen 20H, Creatinine 1.0, Estimat Glomerular Filtration Rate , Glucose Level 107H, Calcium Level 9.0 Height (Feet): 5 Height (Inches): 10.00 Weight (Pounds): 162 General Appearance: no apparent distress, alert Neurologic: depressed affect Magalys Witt MD May 10, 2018 00:35
[2018-05-10 06:28] LABS: EOSINOPHILS % (AUTO) 5.7 % (0.0-3.0); HEMATOCRIT 38.2 % (42.0-52.0); HEMOGLOBIN 13.2 G/DL (14.2-18.0); LYMPHOCYTES % (AUTO) 24.7 % (20.0-45.0); MEAN CORPUSCULAR VOLUME 88 FL (80-99); MONOCYTES % (AUTO) 9.5 % (1.0-10.0); NEUTROPHILS % (AUTO) 59.1 % (45.0-75.0); PLATELET COUNT 203 K/UL (150-450); RED BLOOD COUNT 4.36 M/UL (4.70-6.10); RED CELL DISTRIBUTION WIDTH 11.4 % (11.6-14.8); WHITE BLOOD COUNT 6.7 K/UL (4.8-10.8)
[2018-05-10] MEDS: NovoLOG Insulin Flexpen SUBQ SCH ×3 (06:30→16:30)
[2018-05-10 06:48] LABS: ANION GAP 7 mmol/L (5-15); BLOOD UREA NITROGEN 18 mg/dL (7-18); CALCIUM 9.3 MG/DL (8.5-10.1); CARBON DIOXIDE 30 MMOL/L (21-32); CHLORIDE 102 MMOL/L (98-107); CREATININE 1.2 MG/DL (0.55-1.30); POTASSIUM 4.3 MMOL/L (3.5-5.1); SODIUM 139 MMOL/L (136-145)
[2018-05-10 08:00] VITALS: BP 143/69
[2018-05-10] MEDS: TERBINAFINE 1% TOPIC SCH (10:20)
[2018-05-10] MEDS: CICLOPIROX 8% TOPIC SCH (10:20)
[2018-05-10] MEDS: Aspirin Baby 81mg ORAL SCH (10:20)
[2018-05-10] MEDS: Neosporin Oint Ud Pkt TOPIC SCH ×2 (10:21→17:06)
[2018-05-10] MEDS: Metoprolol 25mg tab ORAL SCH (10:33)
[2018-05-10] MEDS: Heparin 5000 units/ml inj SUBQ SCH (10:34)
[2018-05-10] MEDS ORDERED: NOVOLOG100 UNITS1 SUBQ (10:52)
[2018-05-10] MEDS ORDERED: LIPITOR20 MG ORAL (10:52)
[2018-05-10] MEDS ORDERED: LAMISIL AT24 GM TOPIC (10:52)
[2018-05-10] MEDS ORDERED: MIRTAZAPINE15 M3 ORAL (10:52)
--- NOTE | 2018-05-10 10:55 | Pulmonology Progress Note ---
Assessment/Plan Problems: (1) positivie troponin (2) Acute encephalopathy (3) Gait instability (4) Recurrent falls (5) Diabetes mellitus Assessment/Plan stress study was negative sliding scale diabetic diet pt/ot snif placement transfer to med/surg while waiting for a bed [facility] Subjective ROS Limited/Unobtainable: No Constitutional: Reports: no symptoms HEENT: Repors: no symptoms Respiratory: Reports: no symptoms Allergies: Coded Allergies: No Known Allergies (Unverified , 05/05/18) Objective Last 24 Hour Vital Signs Date Time Temp Pulse Resp B/P (MAP) Pulse Ox O2 Delivery O2 Flow Rate FiO2 05/10/18 10:33 69 143/69 05/10/18 08:00 69 05/10/18 08:00 97.6 61 16 143/69 (93) 98 05/10/18 04:00 64 05/10/18 00:00 67 05/10/18 00:00 98.4 62 20 108/64 (79) 93 05/09/18 21:00 Room Air Room Air 05/09/18 20:00 61 05/09/18 20:00 98.6 63 20 127/74 (91) 100 05/09/18 16:00 85 05/09/18 16:00 96.3 70 20 109/60 (76) 100 05/09/18 12:00 97.1 63 20 119/65 (83) 100 05/09/18 12:00 55 Intake and Output 05/09/18 05/10/18 19:00 07:00 Intake Total 630 ml Output Total 350 ml Balance 280 ml Intake Oral 630 ml Output Urine Total 350 ml # Voids 3 General Appearance: WD/WN HEENT: normocephalic, atraumatic Respiratory/Chest: chest wall non-tender, lungs clear Cardiovascular: normal peripheral pulses, normal rate Abdomen: normal bowel sounds, soft, non tender Extremities: no clubbing Skin: no lesions 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 normal Laboratory Tests 05/10/18 05:35: White Blood Count 6.7, Red Blood Count 4.36L, Hemoglobin 13.2L, Hematocrit 38.2L , Mean Corpuscular Volume 88, Mean Corpuscular Hemoglobin 30.3, Mean Corpuscular Hemoglobin Concent 34.5, Red Cell Distribution Width 11.4L, Platelet Count 203, Mean Platelet Volume 6.5, Neutrophils (%) (Auto) 59.1, Lymphocytes (%) (Auto) 24.7, Monocytes (%) (Auto) 9.5, Eosinophils (%) (Auto) 5.7H, Basophils (%) (Auto) 1.0, Sodium Level 139, Potassium Level 4.3, Chloride Level 102, Carbon Dioxide Level 30, Anion Gap 7, Blood Urea Nitrogen 18, Creatinine 1.2, Estimat Glomerular Filtration Rate , Glucose Level 113H, Calcium Level 9.3 Current Medications Medications (Trade) Dose Ordered Sig/Phill Route PRN Reason Start Time Stop Time Status Last Admin Dose Admin Acetaminophen (Tylenol) 650 mg Q6H PRN ORAL Mild Pain/Temp > 100.5 05/05/18 22:30 06/04/18 22:29 Aspirin (ASA) 81 mg DAILY ORAL 05/06/18 09:00 06/05/18 08:59 05/10/18 10:20 Atorvastatin Calcium (Lipitor) 20 mg BEDTIME ORAL 05/07/18 21:00 06/06/18 20:59 05/09/18 21:01 Dextrose (Dextrose 50%) 25 ml Q30M PRN IV Hypoglycemia 05/05/18 22:30 06/04/18 22:29 Dextrose (Dextrose 50%) 50 ml Q30M PRN IV Hypoglycemia 05/05/18 22:30 06/04/18 22:29 Heparin Sodium (Porcine) (Heparin 5000 units/ml) 5,000 units EVERY 12 HOURS SUBQ 05/05/18 22:45 06/04/18 22:44 05/09/18 21:06 Insulin Aspart (NovoLOG) BEFORE MEALS AND HS SUBQ 05/06/18 06:30 06/05/18 06:29 05/08/18 06:18 Metoprolol Tartrate (Lopressor) 25 mg Q12HR ORAL 05/06/18 21:00 06/05/18 20:59 05/08/18 08:51 Mirtazapine (Remeron) 7.5 mg BEDTIME ORAL 05/06/18 21:00 06/05/18 20:59 05/08/18 21:35 Neomycin/ Polymyxin/ Bacitracin (Neosporin) 1 applic BID TOPIC 05/08/18 18:00 06/07/18 17:59 05/10/18 10:21 Patient Own Medication (Patient's Own Med) 1 ea DAILY TOPIC 05/06/18 14:00 06/05/18 13:59 05/10/18 10:20 Regadenoson (Lexiscan) 0.4 mg ONCE PRN IV stress test 05/08/18 20:30 05/10/18 23:59 Terbinafine HCl (LaMISIL 15gm) 1 applic DAILY TOPIC 05/07/18 09:00 06/06/18 08:59 05/10/18 10:20 Mary Costello MD May 10, 2018 10:55
[2018-05-10 12:00] VITALS: BP 110/61
--- NOTE | 2018-05-10 14:25 | Neurology Progress Note ---
Interim History Interim History Interim History Mr. Marino feels well. The mind is clear. He denies any headache. He has been walking more and has been much more steady on his feet. He feels steady when he stands up. He denies any further falls. He denies any new neurologic symptoms. He is eager to go home. Review of Systems Neuro Review of Systems Benign. Objective Physical Exam Last Vital Signs Date Time Temp Pulse Resp B/P (MAP) Pulse Ox O2 Delivery O2 Flow Rate FiO2 05/10/18 12:00 97.8 63 16 110/61 (77) 94 05/10/18 09:00 Room Air Room Air Laboratory Tests Test 05/10/18 05:35 White Blood Count 6.7 K/UL (4.8-10.8) Red Blood Count 4.36 M/UL (4.70-6.10) L Hemoglobin 13.2 G/DL (14.2-18.0) L Hematocrit 38.2 % (42.0-52.0) L Mean Corpuscular Volume 88 FL (80-99) Mean Corpuscular Hemoglobin 30.3 PG (27.0-31.0) Mean Corpuscular Hemoglobin Concent 34.5 G/DL (32.0-36.0) Red Cell Distribution Width 11.4 % (11.6-14.8) L Platelet Count 203 K/UL (150-450) Mean Platelet Volume 6.5 FL (6.5-10.1) Neutrophils (%) (Auto) 59.1 % (45.0-75.0) Lymphocytes (%) (Auto) 24.7 % (20.0-45.0) Monocytes (%) (Auto) 9.5 % (1.0-10.0) Eosinophils (%) (Auto) 5.7 % (0.0-3.0) H Basophils (%) (Auto) 1.0 % (0.0-2.0) Sodium Level 139 MMOL/L (136-145) Potassium Level 4.3 MMOL/L (3.5-5.1) Chloride Level 102 MMOL/L (98-107) Carbon Dioxide Level 30 MMOL/L (21-32) Anion Gap 7 mmol/L (5-15) Blood Urea Nitrogen 18 mg/dL (7-18) Creatinine 1.2 MG/DL (0.55-1.30) Estimat Glomerular Filtration Rate mL/min (>60) Glucose Level 113 MG/DL (74-106) H Calcium Level 9.3 MG/DL (8.5-10.1) Neurologic Exam Objective PHYSICAL EXAMINATION: GENERAL: He is a well-developed and well-nourished pleasant gentleman , lying in bed, in no acute distress. HEAD: Normocephalic with right periorbital ecchymosis, right facial and nasal abrasions, and right subconjunctival hemorrhage. NECK: No neck rigidity was observed. EENT: Benign except for right subconjunctival hemorrhage. NEUROLOGICAL EXAMINATION: MENTAL STATUS EXAMINATION: He was awake and alert. He was oriented to person, place, and time. He was able to recall 3/3 words immediately after 1 minute and after 3 minutes. He was able to remember presidents Trump through Nunez Senior. His mathematical skills were good. His visuospatial function was preserved. SPEECH: He had no dysarthria. LANGUAGE: He had no aphasia. CRANIAL NERVE EXAMINATION: II: The visual hurtado were intact on confrontation testing. III, IV & : External ocular movements were full. Pupils were 3 mm in diameter equal, round, regular, and reactive to light. V: He had normal facial sensations, and the temporales, masseters, and pterygoids functioned normally. VII: He had normal facial expressions and no facial asymmetry. VIII: He was able to hear well bilaterally and had no nystagmus. IX: The palate moved symmetrically on phonation. X: He had no hoarseness of voice. XI: The sternocleidomastoids and trapezii functioned normally. XII: The tongue was in the midline without any fasciculations or atrophy. MOTOR SYSTEM: The tone was normal in all four extremities. Examination of muscle mass revealed no focal wasting. Examination of power revealed G 5/5 power in all muscles. SENSORY EXAMINATION: He had intact sensations to pinprick, light touch, and graphesthesia. Position sense was diminished in the toes bilaterally, but was normal in the fingers bilaterally. COORDINATION: He performed well on [id number] and [id number] testing. On Romberg test, he fell backwards. REFLEXES: 0 at the biceps, triceps, brachioradialis, knees, and ankles. The plantar responses were flexor bilaterally. STANCE: He had a minimally wide-based stance. GAIT: He had a minimally wide-based but stable gait. Impression/Recommendations Diagnostic Impression 1. Mr. Segundo Kuhn is a 72-year-old, right-handed, gentleman, who does have a past history of diabetes mellitus, unsteadiness on his feet which he attributes to left knee problems, and a recent respiratory infection who was functioning well until 05/05/2018, when he tripped and fell down twice on the sidewalk. He in that process sustained right facial and nose injuries. There was no loss of consciousness. 2. He feels well. The mind is clear. He denies any headache. He has been walking more and has been much more steady on his feet. He feels steady when he stands up. He denies any further falls. He denies any new neurologic symptoms. He is eager to go home. 3. On neurological examination, at this time, he does demonstrate a right periorbital ecchymosis, right subconjunctival hemorrhage, abrasions over his right face and nose, decreased position sense in the toes bilaterally, globally absent deep tendon reflexes, a tendency to fall backwards on Romberg test, and a minimally wide-based stance and gait. 4. The CT scan of the brain without contrast reveals mild atrophy and deep white matter changes, but no acute pathology. 5. Laboratory data on my initial evaluation revealed that on admission his WBC count was elevated to 13,600, and was then down to 8400. He was also mildly anemic with a hemoglobin of 13.9 G. His chemistry panel was essentially benign. He did have a troponin elevated to 0.21 when he came in, which had dropped to 0.16. 6. Further laboratory tests have revealed that he is Vitamin B 12 deficient with a level of 308. 7. 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 The most likely etiology for his neuropathy would be a diabetic neuropathy and B 12 deficiency. His stance and gait have improved rapidly - thus there is a high probability that the B 12 deficiency was playing a significant role in his neuropathic dysfunction. 8. The patient has also sustained close head trauma with right facial abrasions , right periorbital ecchymosis, and right subconjunctival hemorrhage, but no other signs of the brain dysfunction. Recommendations 1. Continue present management. 2. Vitamin B 12 - 1000 mcg SC daily monthly. 3. He was told to make sure that his diabetes is well controlled. 4. Mobilize with the help of physical therapy. 5. Increase activity as tolerated. Shine Sanchez M.D., M.S.P.H. Shine Sanchez MD May 10, 2018 14:25
--- NOTE | 2018-05-10 15:45 | Cardiac Electrophysiology PN ---
Assessment/Plan Assessment/Plan 1. [id number] myocardial infarction with elevated troponins and abnormal EKG with T-wave inversion in I, aVL, and V3 to V6. The patient however denies any chest pain. Echo Nl EF. Nuclear stress test showed No imaging findings to suggest ischemia, at level of stress achieved. 2. Status post multiple falls. The patient denies syncope. Echo Nl EF no . MRI brain Chronic and age-related changes is described Negative for acute intracranial bleed, infarct, or mass effect 3. Diabetes, on metformin. DW RN OK to DC Subjective Subjective No events in Sinus dayami. No CP or SOB. Stress test yesterday was non ischemic Objective Last 24 Hour Vital Signs Date Time Temp Pulse Resp B/P (MAP) Pulse Ox O2 Delivery O2 Flow Rate FiO2 05/10/18 12:00 76 05/10/18 12:00 97.8 63 16 110/61 (77) 94 05/10/18 10:33 69 143/69 05/10/18 09:00 Room Air Room Air 05/10/18 08:00 69 05/10/18 08:00 97.6 61 16 143/69 (93) 98 05/10/18 04:00 64 05/10/18 00:00 67 05/10/18 00:00 98.4 62 20 108/64 (79) 93 05/09/18 21:00 Room Air Room Air 05/09/18 20:00 61 05/09/18 20:00 98.6 63 20 127/74 (91) 100 05/09/18 16:00 85 05/09/18 16:00 96.3 70 20 109/60 (76) 100 Intake and Output 05/09/18 05/10/18 18:59 06:59 Intake Total 630 ml Output Total 350 ml Balance 280 ml Intake Oral 630 ml Output Urine Total 350 ml # Voids 3 Laboratory Tests Test 05/10/18 05:35 White Blood Count 6.7 K/UL (4.8-10.8) Red Blood Count 4.36 M/UL (4.70-6.10) L Hemoglobin 13.2 G/DL (14.2-18.0) L Hematocrit 38.2 % (42.0-52.0) L Mean Corpuscular Volume 88 FL (80-99) Mean Corpuscular Hemoglobin 30.3 PG (27.0-31.0) Mean Corpuscular Hemoglobin Concent 34.5 G/DL (32.0-36.0) Red Cell Distribution Width 11.4 % (11.6-14.8) L Platelet Count 203 K/UL (150-450) Mean Platelet Volume 6.5 FL (6.5-10.1) Neutrophils (%) (Auto) 59.1 % (45.0-75.0) Lymphocytes (%) (Auto) 24.7 % (20.0-45.0) Monocytes (%) (Auto) 9.5 % (1.0-10.0) Eosinophils (%) (Auto) 5.7 % (0.0-3.0) H Basophils (%) (Auto) 1.0 % (0.0-2.0) Sodium Level 139 MMOL/L (136-145) Potassium Level 4.3 MMOL/L (3.5-5.1) Chloride Level 102 MMOL/L (98-107) Carbon Dioxide Level 30 MMOL/L (21-32) Anion Gap 7 mmol/L (5-15) Blood Urea Nitrogen 18 mg/dL (7-18) Creatinine 1.2 MG/DL (0.55-1.30) Estimat Glomerular Filtration Rate mL/min (>60) Glucose Level 113 MG/DL (74-106) H Calcium Level 9.3 MG/DL (8.5-10.1) Objective HEAD AND NECK: No JVD. His right eye is ecchymotic. There is a scar on the bridge of the nose. LUNGS: Clear. CARDIOVASCULAR: Regular S1 and S2 with no gallop or murmur. ABDOMEN: Soft. EXTREMITIES: No pitting edema. Lauri Faye MD May 10, 2018 15:45
[2018-05-10 16:00] VITALS: BP 118/90
--- NOTE | 2018-05-10 18:05 | Internal Med Progress Note ---
Subjective Date of Service: May 10, 2018 Physician Name Montez Gifford Attending Physician Rik Olivas MD Current Medications Medications (Trade) Dose Ordered Sig/Phill Route PRN Reason Start Time Stop Time Status Last Admin Dose Admin Acetaminophen (Tylenol) 650 mg Q6H PRN ORAL Mild Pain/Temp > 100.5 05/05/18 22:30 06/04/18 22:29 Aspirin (ASA) 81 mg DAILY ORAL 05/06/18 09:00 06/05/18 08:59 05/10/18 10:20 Atorvastatin Calcium (Lipitor) 20 mg BEDTIME ORAL 05/07/18 21:00 06/06/18 20:59 05/09/18 21:01 Dextrose (Dextrose 50%) 25 ml Q30M PRN IV Hypoglycemia 05/05/18 22:30 06/04/18 22:29 Dextrose (Dextrose 50%) 50 ml Q30M PRN IV Hypoglycemia 05/05/18 22:30 06/04/18 22:29 Heparin Sodium (Porcine) (Heparin 5000 units/ml) 5,000 units EVERY 12 HOURS SUBQ 05/05/18 22:45 06/04/18 22:44 05/09/18 21:06 Insulin Aspart (NovoLOG) BEFORE MEALS AND HS SUBQ 05/06/18 06:30 06/05/18 06:29 05/08/18 06:18 Metoprolol Tartrate (Lopressor) 25 mg Q12HR ORAL 05/06/18 21:00 06/05/18 20:59 05/08/18 08:51 Mirtazapine (Remeron) 7.5 mg BEDTIME ORAL 05/06/18 21:00 06/05/18 20:59 05/08/18 21:35 Neomycin/ Polymyxin/ Bacitracin (Neosporin) 1 applic BID TOPIC 05/08/18 18:00 06/07/18 17:59 05/10/18 17:06 Patient Own Medication (Patient's Own Med) 1 ea DAILY TOPIC 05/06/18 14:00 06/05/18 13:59 05/10/18 10:20 Regadenoson (Lexiscan) 0.4 mg ONCE PRN IV stress test 05/08/18 20:30 05/10/18 23:59 Terbinafine HCl (LaMISIL 15gm) 1 applic DAILY TOPIC 05/07/18 09:00 06/06/18 08:59 05/10/18 10:20 Allergies: Coded Allergies: No Known Allergies (Unverified , 05/05/18) ROS Limited/Unobtainable: No Constitutional: Reports: no symptoms HEENT: Reports: no symptoms Cardiovascular: Reports: no symptoms Respiratory: Reports: no symptoms Gastrointestinal/Abdominal: Reports: no symptoms Genitourinary: Reports: no symptoms Neurologic/Psychiatric: Reports: no symptoms Subjective 72 YO M admitted with fall injury. Now NSTEMI. Cover for Int Med-Dr Olivas. Await transfer to [facility]. Objective Last Vital Signs Date Time Temp Pulse Resp B/P (MAP) Pulse Ox O2 Delivery O2 Flow Rate FiO2 05/10/18 16:00 98.2 75 16 118/90 (99) 98 05/10/18 09:00 Room Air Room Air Laboratory Tests Test 05/10/18 05:35 White Blood Count 6.7 K/UL (4.8-10.8) Red Blood Count 4.36 M/UL (4.70-6.10) L Hemoglobin 13.2 G/DL (14.2-18.0) L Hematocrit 38.2 % (42.0-52.0) L Mean Corpuscular Volume 88 FL (80-99) Mean Corpuscular Hemoglobin 30.3 PG (27.0-31.0) Mean Corpuscular Hemoglobin Concent 34.5 G/DL (32.0-36.0) Red Cell Distribution Width 11.4 % (11.6-14.8) L Platelet Count 203 K/UL (150-450) Mean Platelet Volume 6.5 FL (6.5-10.1) Neutrophils (%) (Auto) 59.1 % (45.0-75.0) Lymphocytes (%) (Auto) 24.7 % (20.0-45.0) Monocytes (%) (Auto) 9.5 % (1.0-10.0) Eosinophils (%) (Auto) 5.7 % (0.0-3.0) H Basophils (%) (Auto) 1.0 % (0.0-2.0) Sodium Level 139 MMOL/L (136-145) Potassium Level 4.3 MMOL/L (3.5-5.1) Chloride Level 102 MMOL/L (98-107) Carbon Dioxide Level 30 MMOL/L (21-32) Anion Gap 7 mmol/L (5-15) Blood Urea Nitrogen 18 mg/dL (7-18) Creatinine 1.2 MG/DL (0.55-1.30) Estimat Glomerular Filtration Rate mL/min (>60) Glucose Level 113 MG/DL (74-106) H Calcium Level 9.3 MG/DL (8.5-10.1) Intake and Output 05/09/18 05/10/18 18:59 06:59 Intake Total 630 ml Output Total 350 ml Balance 280 ml Intake Oral 630 ml Output Urine Total 350 ml # Voids 3 Objective General Appearance: WD/WN, no apparent distress, alert EENT: PERRL/EOMI, normal ENT inspection Neck: non-tender, normal alignment, supple, normal inspection Cardiovascular: normal peripheral pulses, normal rate, regular rhythm, no gallop/murmur, no JVD Respiratory/Chest: chest wall non-tender, lungs clear, normal breath sounds, no respiratory distress, no accessory muscle use Abdomen: normal bowel sounds, non tender, soft, no organomegaly, no mass Extremities: normal range of motion, non-tender Neurologic: tassel clipper II-XII grossly normal, no motor/sensory deficits Skin: normal pigmentation, warm/dry Assessment/Plan Problem List: (1) NSTEMI (non-ST elevated myocardial infarction) Assessment & Plan: Cardiolite stress test result 05/09/18= normal. See cardiology note. (2) Elevated troponin (3) Diabetes mellitus type II, uncontrolled Assessment & Plan: continue novolog sliding scale (4) Right orbital fracture Assessment & Plan: Await ophthalmology consult (5) Nasal fracture (6) Facial contusion Status: progressing Assessment/Plan Transfer to [facility] when bed available. Montez Gifford MD May 10, 2018 18:05
--- NOTE | 2018-05-10 19:16 | Progress Note ---
DATE: 05/05/2018 SUBJECTIVE: The patient is in bed, in no acute distress. Continues to have anxiety and low energy. Poor insight and judgment. negative today. The patient has poor compliance with medication. MENTAL STATUS EXAMINATION: The patient is alert and oriented times self, place, and situation. Mood is anxious. Affect is constricted. Congruent with mood. Thought process is concrete. Thought content, no suicidal or homicidal ideation. PLAN: 1. The patient will continue on mirtazapine. 2. Provide the patient with supportive therapy and reality orientation. Magalys Witt M.D. DR: Jillian JOB#: [id number] CC:
--- NOTE | 2018-05-10 19:31 | General Progress Note ---
Progress Note Progress Note CT angio and duplex images reviewed with bilateral carotid stenosis and possible left subclavian artery stenosis MRI brain old right sided infarct Rec Antiplatelet and statin therapy Ok for d/c per vascular point Will schedule patient for outpatient aortic arch carotid subclavian angiogram to assess any need for any revascularization Faisal Roper MD May 10, 2018 19:31
--- NOTE | 2018-05-11 17:33 | Diagnostic Imaging Report ---
APPROVED REPORT CPT Code: 61396 Vascular Symptoms Syncope Doppler Spectral Velocity Analysis RightLeft arteries. The Doppler spectral flow analysis is within normal limits in bilateral common carotid arteries. The Doppler spectral flow analysis indicates the degree of stenosis is moderate (50-69%) in the right and left internal and external carotid arteries. VERTEBRAL - The vertebral arteries are patent, without evidence of stenosis or steal.
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
== END 2018-05-10 22:24 | DRG 154 ==
LOC: EDBD 16:07 → EMR 19:03 → 2E 19:28 → EDBEDREQ 20:10
DX: S02.2XXA Fracture of nasal bones, initial encounter for closed fracture (principal); I21.4 Non-ST elevation (NSTEMI) myocardial infarction; S02.40CA Maxillary fracture, right side, initial encounter for closed fracture; S02.81XA Fracture of other specified skull and facial bones, right side, initial encounter for closed fracture; G93.40 Encephalopathy, unspecified; W01.0XXA Fall on same level from slipping, tripping and stumbling without subsequent striking against object, initial encounter; Y92.480 Sidewalk as the place of occurrence of the external cause; R29.6 Repeated falls; E86.0 Dehydration; E11.42 Type 2 diabetes mellitus with diabetic polyneuropathy; R26.81 Unsteadiness on feet; S09.8XXA Other specified injuries of head, initial encounter; S00.81XA Abrasion of other part of head, initial encounter; S00.11XA Contusion of right eyelid and periocular area, initial encounter; H11.31 Conjunctival hemorrhage, right eye; F41.9 Anxiety disorder, unspecified; G47.00 Insomnia, unspecified; Z79.84 Long term (current) use of oral hypoglycemic drugs; Z79.82 Long term (current) use of aspirin; Z87.891 Personal history of nicotine dependence; I10 Essential (primary) hypertension; I65.23 Occlusion and stenosis of bilateral carotid arteries; E11.65 Type 2 diabetes mellitus with hyperglycemia; E53.8 Deficiency of other specified B group vitamins
CPT/HCPCS: 36415; 70450; 70486; 70498; 70551; 71045; 78452; 80048; 80053; 80061; 82306; 82607; 82746; 82962; 83036; 83735; 83880; 84100; 84165; 84484; 85025; 85610; 85651; 85730; 86592; 87081; 90471; 90715; 93005; 93017; 93306; 93880; 93930; 99285; J1815; J2785